=== PATIENT | male | born 1990 | race Hispanic/Latino ===

== ENCOUNTER 2016-07-10 02:06 | Inpatient (IN) | payer OTHER ==
[~2016-07-10] VITALS: Ht 175.3 cm; Wt 77.7 kg
[2016-07-10] MEDS ORDERED: CHARCOAL ACTIVATED LIQUID 25 GM/120 ML BTL As Ordered ONE (02:26)
[2016-07-10 02:33] LABS: MEAN CORPUSCULAR HEMOGLOBIN 29.5 pg (27.0-33.0); MEAN CORPUSCULAR HGB CONC 34.1 g/dl (32.0-36.5); MEAN CORPUSCULAR VOLUME 86.4 fl (80.0-96.0); RED CELL DISTRIBUTION WIDTH 12.9 % (11.5-14.5); WHITE BLOOD COUNT 10.6 K/mm3 (4.0-10.0)
[2016-07-10 02:56] LABS: AMPHETAMINES LEVEL URINE NEGATIVE (NEGATIVE); BENZODIAZEPINES URINE NEGATIVE (NEGATIVE); COCAINE METABOLITE URINE NEGATIVE (NEGATIVE); CONTROL LINE INT CTR LINE PRESENT; METHADONE URINE NEGATIVE (NEGATIVE); OPIATES URINE NEGATIVE (NEGATIVE); TRICYCLIC ANTIDEPRESS URINE NEGATIVE (NEGATIVE)
[2016-07-10 03:07] LABS: ALBUMIN 4.2 GM/DL (3.2-5.2); ALKALINE PHOSPHATASE 77 U/L (45-117); ALT/SGPT 37 U/L (12-78); ANION GAP 11 MEQ/L (8-16); AST/SGOT 28 U/L (15-37); BILIRUBIN,DIRECT < 0.1 MG/DL (0.0-0.2); BILIRUBIN,TOTAL 0.6 MG/DL (0.2-1.0); BLOOD UREA NITROGEN 20 MG/DL (7-18); CALCIUM LEVEL 8.6 MG/DL (8.5-10.1); CARBON DIOXIDE LEVEL 26 MEQ/L (21-32); CHLORIDE LEVEL 104 MEQ/L (98-107); CREATININE FOR GFR 1.18 MG/DL (0.70-1.30); GLOMERULAR FILTRATION RATE > 60.0 (>60); GLUCOSE, FASTING 95 MG/DL (70-105); POTASSIUM SERUM 3.6 MEQ/L (3.5-5.1); SODIUM LEVEL 141 MEQ/L (136-145); TOTAL PROTEIN 7.7 GM/DL (6.4-8.2)
[2016-07-10] MEDS ORDERED: traZODone 50 MG TAB PO PRN (07:00)
[2016-07-10] MEDS ORDERED: MOM 30ML SUSPENSION UDC PO PRN (07:00)
[2016-07-10] MEDS ORDERED: ACETAMINOPHEN TAB 650MG DOSE (2X325MG) PO PRN (07:00)
[2016-07-10] MEDS ORDERED: LORazepam 1 MG TAB PO PRN (07:00)
--- NOTE | 2016-07-10 08:15 | ECGEPIP ---
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
--- NOTE | 2016-07-10 08:38 | EDDOCDS ---
Nurse's Notes [facility] Name: Shashank Zelaya Age: 25 yrs Sex: Male : 1990 Arrival Date: 07/10/2016 Time: 02:06 Bed [facility] Private MD: Barry Clarke [facility] Diagnosis: Major depressive disorder, single episode, moderate;Suicide attempt Presentation: 07/10 02:11 Presenting complaint: EMS states: pt took a full box of mucinex (16 tabs) and tylenol ko2 500mg (12 tabs) around 1 am and told his . Pt states he was intentionally trying to hurt himself and he has been contemplating suicide the last month. Suicide/Homicide risk assessment- The patient admits to and/or has been reported to be having suicidal ideations. 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 Transition of care: patient was not received from another setting of care. Care prior to arrival: See EMS report. Saline lock initiated. Glucose check. 95. 02:11 Acuity: DANA Level 2 ko2 02:11 Method Of Arrival: Ambulance ko2 03:19 Adult Sepsis Screening: The patient does not have new or worsening altered mentation. ko2 Patient's respiratory rate is less than 22. Systolic blood pressure is greater than 100. Patient has a qSOFA score of 0- Negative Sepsis Screen. Triage Assessment: 02:15 General: Appears in no apparent distress, Behavior is cooperative. Pain: Denies pain. ko2 HIV screening NA for this visit Offered previously. The patient is triaged at the bedside. See Assessment in Nurses Notes section of ED record. Neurological: Level of Consciousness is awake, alert. Cardiovascular: Heart tones present Rhythm is regular. Respiratory: Airway is patent Respiratory effort is even, unlabored. GI: Abdomen is non- distended Bowel sounds present X 4 quads. Abd is soft and non tender X 4 quads. Derm: Skin is normal. Musculoskeletal: Range of motion intact in all extremities. Historical: - Allergies: No known drug Allergies; - Home Meds: 1. none - PMHx: none; - PSHx: none; - The history from nurses notes was reviewed: and I agree with what is documented. - Social history: Smoking status: Patient states was never smoker of tobacco. No barriers to communication noted, The patient speaks fluent Croatian, Speaks appropriately for age. - : The pt / caregiver states he / she is not on anticoagulants. Home medication list is obtained from the patient. - Hospitalizations: : No recent hospitalization is reported. - Exposure Risk Screening:: None identified. - Immunization history:: All immunizations up-to-date. - Family history: Not pertinent. - Social history:: the patient smokes cigarettes the patient drinks alcohol. Screenin:28 Screening information is obtained from the patient. Fall risk: No risks identified. dianne Assistance ADL's: requires no assistance with activities of daily living. Abuse/DV Screen: The patient / caregiver reports he/she is: not in a situation that causes fear, pain or injury. Nutritional screening: No deficits noted. Advance Directives: Currently, there is no health care proxy. There is no active DNR order. There is no living will. There is no Power of Research Chemist. Advance directive information has not previously been placed in an [facility] medical record. Further advance directive information is declined. home support is adequate. Assessment: 02:17 General: See triage assessment. ko2 03:18 General: Appears in no apparent distress, comfortable, Behavior is appropriate for age, ko2 cooperative. Pain: Denies pain. Neurological: Level of Consciousness is awake, alert. Cardiovascular: Rhythm is regular. Respiratory: Airway is patent Respiratory effort is even, unlabored, Respiratory pattern is regular, symmetrical. Derm: Skin is normal. 04:18 General: Appears in no apparent distress, comfortable, Behavior is appropriate for age, ko2 cooperative. Pain: Denies pain. Neurological: Level of Consciousness is awake, alert. Cardiovascular: Rhythm is sinus bradycardia No ectopy. Respiratory: Airway is patent Respiratory effort is even, unlabored. Derm: Skin is normal. 05:23 General: Appears in no apparent distress, comfortable, Behavior is appropriate for age, ko2 cooperative. Pain: Denies pain. Neurological: Level of Consciousness is awake, alert. Cardiovascular: Rhythm is sinus bradycardia No ectopy. Respiratory: Airway is patent Respiratory effort is even, unlabored. Derm: Skin is normal. 06:25 General: Appears in no apparent distress, comfortable, Behavior is appropriate for age, ka4 cooperative, quiet. Respiratory: Airway is patent Respiratory effort is even, unlabored, Respiratory pattern is regular, symmetrical. Derm: Skin is pink, warm & dry. 07:15 Reassessment: Patient appears in no apparent distress at this time. Breakfast tray has jc4 been delivered. 08:34 General: Appears in no apparent distress, comfortable, Behavior is cooperative. Pain: jc4 Denies pain. Neurological: Level of Consciousness is awake, alert, Oriented to person, place, time. Respiratory: Airway is patent Respiratory effort is even, unlabored, Respiratory pattern is regular, symmetrical. Derm: Skin is pink, warm & dry. 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 [facility] Behavioral Health: jovanna The patient is not an established patient of [facility] Behavioral Health. Referral Information: Evaluation referral is generated by [facility], accompanied by MPs. The patient was referred for evaluation because he took an intentional overdose, with suicidal intent. Subjective: The patients chief complaint is "I've lost everything; it's because of the ". Delusions are denied. Patient's mood is depressed & hopeless. Hallucinations are denied. 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 He reports being from [place], [place], as is his . He states that she followed him here from [place] & has since decided that she can no longer stand the change in climate & geography in general. He says that they went home for block leave & talked about making some changes in their lives in order to make her more comfortable, however she phoned him on his way back & said that she was "done". They have a 1.5 y/o child & he says that his decision to enlist has now cost him his family & he sees nothing left for him. He states that tonight he was texting with a friend in [place] that was trying to make him feel better, but then his turned away from him & ignored him when he began to cry, prompting the overdose. He denies having any relevant hx prior to now. When asked if he still feels suicidal, he replied, "I've lost everything", without committing either way. Patient appears hopeless & noted to be tearful at times during the interview. Mental Health history: no relevant mental health problems or treatments. Mental Health Admissions: None. Current Outpatient Mental Health Services: None. Current living environment is The patient currently lives with his & 1.5 y/o child. Patient presents to Emergency Department with the following symptoms within the past 2 weeks: anxiety, depressed mood, excessive guilt, feelings of helplessness/hopelessness, marital problem, sleep disturbance - insomnia, suicidal ideation with attempt/gesture by pills. Substance abuse: Pt denies. Mental status exam: Patients appearance is appropriate, Patient's behavior is cooperative, Speech is normal. Affect is appropriate. Mood is depressed. Hallucinations are denied. Appetite is normal. Memory is good. Energy level is normal. Content of thought is depressive & hopeless Thought process is intact. Cognitive level is oriented to person, place, time and situation Patient's insight is fair. Judgement is poor. Rapport with interviewer is good. Suicidal Ideation present with a plan to kill self by pills. Homicidal ideation is denied. 06:50 Disposition: Medically cleared for disposition by Elvin Jeff MD Psychiatric Consult jl is performed by phone with Dr Santana Jalloh. [facility] Admission Criteria: The patient has had a suicide attempt in the recent past. The patient requires continuous observation and/or control to protect self, others or property. The patient's care requires a multi-modal treatment plan under close supervision and coordination due to the complexity and severity of the patient's symptoms. Legal Status: Patient's legal status will be Emergency admission: 39. [place] Safe Act: [place] Safe Act is applicable to this patient. The patient poses a risk to self or other and the Nursing Student Records Specialist has been notified. He/She will enter the patient's data. DSM-V Differential Diagnosis: Unspecified Depressive Disorder (F32.9). Insurance Pre-Certification: Not Required. 07:46 Awaiting: transfer to [facility]. Vital Signs: 02:12 BP 154 / 89 (auto/); ko2 02:13 Weight 76.61 kg (M); jul 02:13 Pulse 79 MON; Pulse Ox 99% ; ko2 02:15 BP 154 / 89; Pulse 72; Resp 18; Temp 97.8(O); Pulse Ox 100% on R/A; Height 5 ft. 9 in. latosha (175.26 cm) (R); 02:15 BP 138 / 85 (auto/); ko2 02:16 Pulse 67 MON; Pulse Ox 100% ; ko2 02:30 BP 132 / 74 (auto/); ko2 02:31 Pulse 67 MON; Pulse Ox 98% ; ko2 02:45 BP 125 / 66 (auto/); ko2 02:46 Pulse 73 MON; ko2 03:00 BP 119 / 75 (auto/); ko2 03:00 Pulse 80 MON; ko2 03:15 BP 105 / 65 (auto/); ko2 03:16 Pulse 73 MON; Pulse Ox 99% ; ko2 03:30 BP 118 / 62 (auto/); ko2 03:31 Pulse 68 MON; Pulse Ox 98% ; ko2 03:45 BP 94 / 50 (auto/); ko2 03:46 Pulse 65 MON; Pulse Ox 97% ; ko2 04:00 BP 88 / 52 (auto/); ko2 04:00 Pulse 61 MON; Pulse Ox 96% ; ko2 04:01 BP 93 / 50 (auto/); ko2 04:01 Pulse 59 MON; Pulse Ox 96% ; ko2 04:15 BP 93 / 54 (auto/); ko2 04:16 Pulse 57 MON; Pulse Ox 97% ; ko2 04:30 BP 81 / 42 (auto/); ko2 04:30 Pulse 57 MON; Pulse Ox 97% ; ko2 04:47 BP 89 / 53 (auto/); ko2 04:48 Pulse 66 MON; Pulse Ox 98% ; ko2 05:00 BP 102 / 57 (auto/); ko2 05:01 Pulse 72 MON; Pulse Ox 99% ; ko2 05:15 BP 107 / 56 (auto/); ko2 05:16 Pulse 71 MON; Pulse Ox 100% ; ko2 05:30 BP 104 / 56 (auto/); ko2 05:30 Pulse 63 MON; Pulse Ox 99% ; ko2 05:45 BP 105 / 58 (auto/); ko2 05:46 Pulse 59 MON; Pulse Ox 97% ; ko2 06:42 BP 118 / 82; Pulse 76; Resp 18; Temp 97.4(T); Pulse Ox 97% on R/A; Pain 0/10; kb5 07:49 BP 135 / 68; Pulse 80; Resp 16; Temp 97.2(T); Pulse Ox 97% on R/A; dpm Vitals: 03:20 Log In Time N/A - ambulance arrival. ko2 ED Course: 02:07 Ellen Caldwell,RN is Primary Nurse. sew 02:07 Patient visited by Misty Basilio. sew 02:07 Patient moved to 2 sew 02:08 Other - Complete Info On Cds is Private Physician. sew 02:08 Barry Clarke [facility] is Private Physician. sew 02:14 Elvin Jeff MD is Attending Physician. pc 02:14 Triage Initiated ko2 02:15 Pt greeted and oriented to ED. Patient advised of names of staff involved in care, latosha location of call gale, wait times and NPO status. Accompanied by Law Enforcement, Patient has correct armband on for positive identification. Placed in psych safe attire. Bed in low position. Call light in reach. Side rails up X2. commercial lender on. Pulse ox on. NIBP on. 02:18 Patient visited by Magui Conde PCA. latosha 02:18 EKG done. (by ED staff). Reviewed by Elvin Jeff MD. latosha 02:24 Patient visited by Elvin Jeff MD. pc 02:28 The patient / caregiver is instructed regarding the plan of care and ED course. jul 02:30 Poison Control notified at 02:25 recommendations reviewed with recommendations relayed jul to Dr Jeff per recommendations of Silvia at Poison Control. 02:39 Drug Eval Toxicology ED Only Sent. jul 03:18 Patient visited by Ellen Caldwell,CHEKO. ko2 03:19 Maintain field IV. Dressing intact. Good blood return noted. Site clean & dry. Gauge & ko2 site: 18 gauge right AC. 04:18 Patient visited by Ellen Caldwell,RN. ko2 05:01 Patient visited by Ellen Caldwell,RN. ko2 05:02 ACETAMINOPHEN LEVEL Sent. ko2 05:58 Patient visited by Ellen Caldwell,CHEKO. ko2 06:05 Patient moved to [facility] sew 06:06 Discontinued lock intact, bleeding controlled, pressure dressing applied, No ko2 redness/swelling at site. 06:15 Pt greeted and oriented to ED. Patient advised of names of staff involved in care, kb5 location of call gale, wait times and NPO status. Patient has correct armband on for positive identification. Placed in psych safe attire. Bed in low position. Call light in reach. Side rails up X 1. Security observing. Property removed, inventory done, secured in belongings bag- Placed in Locker 2. Patient in psych safe attire prior to entering [facility]. Door closed. Noise minimized. Visitors limited. Warm blanket given. Psych Safety Check: Location: Psych Room. Visual Assessment: Cooperative. 06:20 Patient visited by Madi Mcpherson PCA. kb5 06:26 Patient visited by Soo Rodriguez LPN. ka4 06:30 Patient visited by Madi Mcpherson PCA. kb5 06:30 Psych Safety Check: Location: Psych Room. Visual Assessment: Cooperative. kb5 06:30 [facility] Payment Agreement was scanned into [employer] and attached to record. hs2 06:45 Patient visited by Madi Mcpherson PCA. kb5 06:45 Psych Safety Check: Location: Psych Room. Visual Assessment: Cooperative. kb5 06:51 Santana Jalloh is Hospitalizing Provider. pc 06:58 [facility] Legal paperwork was scanned into [employer] and attached to record. jl 07:00 Tara De Leon, CHEKO is Primary Nurse. jc4 07:00 Psych Safety Check: Location: Psych Room. Visual Assessment: Cooperative. kb5 07:03 Patient visited by Madi Mcpherson PCA. kb5 07:20 Patient visited by Miles Escobar. dpm 07:31 Primary Nurse role handed off by Ellen Caldwell,CHEKO kpj 07:36 Patient visited by Miles Escobar. dpm 07:52 Patient visited by Miles Escobar. dpm 08:00 Patient visited by Miles Escobar. dpm 08:14 Patient visited by Miles Escobar. dpm 08:30 Patient visited by Miles Escobar. dpm 08:36 EKG-ADULT Returned. EDMS 08:37 No procedures done that require assistance. jc4 Administered Medications: 02:39 Drug: Activated Charcoal (1g/kg) 75 grams [activated charcoal 25 gram/120 mL oral ko2 suspension (7200 drps)] Route: PO; Attachments: 06:58 [facility] Legal paperwork jl Order Results: Lab Order: Acetaminophen Level; SPEC'M 07/10/16 02:23 Test: ACETAMINOPHEN LEVEL; Value: 53.4; Range: 10.0-30.0; Abnormal: Above high normal; Units: UG/ML; Status: F Lab Order: Basic Metabolic Profile; SPEC'M 07/10/16 02:23 Test: GLUCOSE, FASTING; Value: 95; Range: 70-105; Units: MG/DL; Status: F Test: BLOOD UREA NITROGEN; Value: 20; Range: 7-18; Abnormal: Above high normal; Units: MG/DL; Status: F Test: CREATININE FOR GFR; Value: 1.18; Range: 0.70-1.30; Units: MG/DL; Status: F Test: GLOMERULAR FILTRATION RATE; Value: > 60.0; Range: >60; Status: F Test: SODIUM LEVEL; Value: 141; Range: 136-145; Units: MEQ/L; Status: F Test: POTASSIUM SERUM; Value: 3.6; Range: 3.5-5.1; Units: MEQ/L; Status: F Test: CHLORIDE LEVEL; Value: 104; Range: 98-107; Units: MEQ/L; Status: F Test: CARBON DIOXIDE LEVEL; Value: 26; Range: 21-32; Units: MEQ/L; Status: F Test: ANION GAP; Value: 11; Range: 8-16; Units: MEQ/L; Status: F Test: CALCIUM LEVEL; Value: 8.6; Range: 8.5-10.1; Units: MG/DL; Status: F Test Note: ; Units are mL/min/1.73 m2 Chronic Kidney Disease Staging per NKF: Stage I & II GFR >=60 Normal to Mildly Decreased Stage III GFR 30-59 Moderately Decreased Stage IV GFR 15-29 Severely Decreased Stage V GFR <15 Very Little GFR Left ESRD GFR <15 on MACHINERY ENGINEER Lab Order: Complete Blood Count; SPEC'M 07/10/16 02:23 Test: WHITE BLOOD COUNT; Value: 10.6; Range: 4.0-10.0; Abnormal: Above high normal; Units: K/mm3; Status: F Test: RED BLOOD COUNT; Value: 5.16; Range: 4.30-6.10; Units: M/mm3; Status: F Test: HEMOGLOBIN; Value: 15.2; Range: 14.0-18.0; Units: g/dl; Status: F Test: HEMATOCRIT; Value: 44.6; Range: 42.0-52.0; Units: %; Status: F Test: MEAN CORPUSCULAR VOLUME; Value: 86.4; Range: 80.0-96.0; Units: fl; Status: F Test: MEAN CORPUSCULAR HEMOGLOBIN; Value: 29.5; Range: 27.0-33.0; Units: pg; Status: F Test: MEAN CORPUSCULAR HGB CONC; Value: 34.1; Range: 32.0-36.5; Units: g/dl; Status: F Test: RED CELL DISTRIBUTION WIDTH; Value: 12.9; Range: 11.5-14.5; Units: %; Status: F Test: PLATELET COUNT, AUTOMATED; Value: 255; Range: 150-450; Units: k/mm3; Status: F Lab Order: Drug Eval Toxicology ED Only; SPEC'M 07/10/16 02:38 Test: AMPHETAMINES LEVEL URINE; Value: NEGATIVE; Range: NEGATIVE; Status: F Test: BARBITURATES URINE; Value: NEGATIVE; Range: NEGATIVE; Status: F Test: BENZODIAZEPINES URINE; Value: NEGATIVE; Range: NEGATIVE; Status: F Test: CANNABINOIDS URINE; Value: NEGATIVE; Range: NEGATIVE; Status: F Test: COCAINE METABOLITE URINE; Value: NEGATIVE; Range: NEGATIVE; Status: F Test: METHADONE URINE; Value: NEGATIVE; Range: NEGATIVE; Status: F Test: OPIATES URINE; Value: NEGATIVE; Range: NEGATIVE; Status: F Test: TRICYCLIC ANTIDEPRESS URINE; Value: NEGATIVE; Range: NEGATIVE; Status: F Test Note: ; ALL PRESUMPTIVE POSITIVE FINDINGS ARE UNCONFIRMED NORMAL VALUES THRESHOLD IN NG/ML AMPHETAMINES 1000 METHAMPHETAMINES 1000 BARBITURATES 300 BENZODIAZEPINES 300 CANNABINOIDS (THC) 50 COCAINE METABOLITE 300 METHADONE 300 OPIATES 300 PHENCYCLIDINE 25 TRICYCLIC ANTIDEPRESSANTS 1000 RESULTS ARE FOR MEDICAL PURPOSES ONLY. ALL URINE SPECIMENS WILL BE SAVED FOR 3 DAYS. IF CONFIRMATION OF A PRESUMPTIVE POSTIVE SCREEN RESULT IS DESIRED, CALL CHEMISTRY ([phone]) AND REQUEST URINE TO BE SENT TO REFERENCE LAB. FOR A LIST OF CLOSELY RELATED COMPOUNDS PLEASE CALL THE LAB. Lab Order: Ethyl Alcohol (ethanol); SPEC'M 07/10/16 02:23 Test: ETHYL ALCOHOL (ETHANOL); Value: < 0.003; Range: 0.000-0.010; Units: %; Status: F Lab Order: Liver Profile; SPEC'M 07/10/16 02:23 Test: AST/SGOT; Value: 28; Range: 15-37; Units: U/L; Status: F Test: ALT/SGPT; Value: 37; Range: 12-78; Units: U/L; Status: F Test: ALKALINE PHOSPHATASE; Value: 77; Range: 45-117; Units: U/L; Status: F Test: BILIRUBIN,TOTAL; Value: 0.6; Range: 0.2-1.0; Units: MG/DL; Status: F Test: BILIRUBIN,DIRECT; Value: < 0.1; Range: 0.0-0.2; Units: MG/DL; Status: F Test: TOTAL PROTEIN; Value: 7.7; Range: 6.4-8.2; Units: GM/DL; Status: F Test: ALBUMIN; Value: 4.2; Range: 3.2-5.2; Units: GM/DL; Status: F Test: ALBUMIN/GLOBULIN RATIO; Value: 1.20; Range: 1.00-1.93; Status: F Lab Order: Salicylate Level; SPEC'M 07/10/16 02:23 Test: SALICYLATE LEVEL; Value: < 1.7; Range: 5.0-30.0; Abnormal: Below low normal; Units: MG/DL; Status: F Lab Order: Thyroid Stimulating Hormone; SPEC'M 07/10/16 02:23 Test: THYROID STIMULATING HORMONE; Value: 5.090; Range: 0.358-3.740; Abnormal: Above high normal; Units: uIU/ML; Status: F Lab Order: ACETAMINOPHEN LEVEL; SPEC'M 07/10/16 05:00 Test: ACETAMINOPHEN LEVEL; Value: 28.0; Range: 10.0-30.0; Units: UG/ML; Status: F Radiology Order: EKG-ADULT Test: EKG-ADULT REASON FOR EXAMINATION: overdose; Stationary ECG Study; [facility] - ED; ; Test Date: 2016-07-10; Pat Name: SHASHANK ZELAYA Department:; Room: -; 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 08:35 Discharge Assessment: Patient awake, alert and oriented x 3. No cognitive and/or jc4 functional deficits noted. Patient verbalized understanding of disposition instructions. 08:36 Discharge Assessment: patient administered narcotics - no. The following High Risk jc4 Discharge criteria are identified: Yes, patient has been evaluated by PSA during this ED visit. Admitted to Psych accompanied by tech, via wheelchair, with chart. Condition: stable. No special radiology studies were completed. 08:37 Patient left the ED. 4 Signatures: Dispatcher [employer] EDMS Elvin Jeff MD MD pc Jobson, Karen, RN CHEKO Church, Emilia Davies, RN Antonio Sanchez, PSA PSA ac Darren Pak, PSA PSA Madi Mejia, OPS MANAGER OPS MANAGER kb5 Tara De Leon RN RN jc4 Magui Conde, OPS MANAGER OPS MANAGER Miles Torres dpMisty Melchor Kodie, LPN LPN ka4 Ellen Caldwell,RN RN ko2 Shi Gonzalez, Reg Reg hs2 Corrections: (The following items were deleted from the chart) 06:47 06:42 Pulse 76bpm; Resp 18bpm; Pulse Ox 97% RA; Temp 97.4F Tympanic; Pain 0/10; kb5 kb5 MTDD
--- NOTE | 2016-07-10 08:38 | EDDOCDS ---
Physician Documentation [facility] Name: Shashank Zelaya Age: 25 yrs Sex: Male : 1990 Arrival Date: 07/10/2016 Time: 02:06 Bed [facility] Private MD: Barry Clarke [facility] Disposition: 07/10 06:48 Critical Care: Critical care not applicable. pc Disposition: 07/10/16 06:51 Hospitalization ordered by Santana Jalloh for Inpatient Admission. Preliminary diagnosis are Major depressive disorder, single episode, moderate, Suicide attempt. - Bed requested for Admit. - Status is Inpatient Admission. jc4 - Condition is Stable. - Problem is new. - Symptoms have improved. HPI: 02:16 This 25 yrs old Male presents to ER via Ambulance with complaints of Overdose. pc 02:16 The history is obtained from the patient, EMS providers, a police clerk. The patient pc presents to the emergency department with depression, intentional drug overdose. The patient's intention was to commit suicide. At their worst, the symptoms were severe. In the emergency department, the symptoms are unchanged. He took an overdose of 16 tablets of Mucinex Fast-Max, which contains acetaminophen/dextromethorphan/guaifenesin/phenylephrine in a ratio of 325mg/10mg/200mg/5mg, as well as 12-24 acetaminophen/diphenhydraime tablets 500mg/25mg, for a total acetaminophen ingestion of 11.2g to 17.2g, one hour CLOTHES MODEL. The patient ingested the following substances:. The patient has not experienced similar symptoms in the past. The patient has not recently seen a physician. Historical: - Allergies: No known drug Allergies; - Home Meds: 1. none - PMHx: none; - PSHx: none; - The history from nurses notes was reviewed: and I agree with what is documented. - Social history: Smoking status: Patient states was never smoker of tobacco. No barriers to communication noted, The patient speaks fluent Uzbek, Speaks appropriately for age. - : The pt / caregiver states he / she is not on anticoagulants. Home medication list is obtained from the patient. - Hospitalizations: : No recent hospitalization is reported. - Exposure Risk Screening:: None identified. - Immunization history:: All immunizations up-to-date. - Family history: Not pertinent. - Social history:: the patient smokes cigarettes the patient drinks alcohol. ROS: 02:16 All systems are negative except as listed. The psychiatric and neurological components pc are also addressed in the HPI. Exam: 02:16 General Appearance: alert, no acute distress. pc 02:16 ENT: ear, nose and throat normal, pharynx normal. 02:16 Eyes: pupils equal, round and reactive to light, extraocular motions intact. 02:16 Neck: The exam reveals no acute abnormalities. ROM is normal and painless. No nuchal rigidity is noted.. 02:16 Respiratory: breathing is even and unlabored, breath sounds are normal. 02:16 Cardiovascular: regular pulse rate, regular heart rhythm, normal heart sounds, equal and full pulses bilaterally. 02:16 Abdomen: soft, non-tender, no organomegaly, normal bowel sounds. 02:16 Skin: skin color is normal, warm, dry. 02:16 Extremities: The extremities have a grossly normal appearance, are non-tender, without acute ROM abnormalities. 02:16 Neuro: alert, oriented to person, place and time, cranial nerves normal as tested, no motor deficits, no sensory deficits. 02:16 Psych: mood is depressed, suicidal, affect is flat. Vital Signs: 02:12 BP 154 / 89 (auto/); ko2 02:13 Weight 76.61 kg / 168.9 lbs (M); jul 02:13 Pulse 79 MON; Pulse Ox 99% ; ko2 02:15 BP 154 / 89; Pulse 72; Resp 18; Temp 97.8(O); Pulse Ox 100% on R/A; Height 5 ft. 9 in. latosha (175.26 cm) (R); 02:15 BP 138 / 85 (auto/); ko2 02:16 Pulse 67 MON; Pulse Ox 100% ; ko2 02:30 BP 132 / 74 (auto/); ko2 02:31 Pulse 67 MON; Pulse Ox 98% ; ko2 02:45 BP 125 / 66 (auto/); ko2 02:46 Pulse 73 MON; ko2 03:00 BP 119 / 75 (auto/); ko2 03:00 Pulse 80 MON; ko2 03:15 BP 105 / 65 (auto/); ko2 03:16 Pulse 73 MON; Pulse Ox 99% ; ko2 03:30 BP 118 / 62 (auto/); ko2 03:31 Pulse 68 MON; Pulse Ox 98% ; ko2 03:45 BP 94 / 50 (auto/); ko2 03:46 Pulse 65 MON; Pulse Ox 97% ; ko2 04:00 BP 88 / 52 (auto/); ko2 04:00 Pulse 61 MON; Pulse Ox 96% ; ko2 04:01 BP 93 / 50 (auto/); ko2 04:01 Pulse 59 MON; Pulse Ox 96% ; ko2 04:15 BP 93 / 54 (auto/); ko2 04:16 Pulse 57 MON; Pulse Ox 97% ; ko2 04:30 BP 81 / 42 (auto/); ko2 04:30 Pulse 57 MON; Pulse Ox 97% ; ko2 04:47 BP 89 / 53 (auto/); ko2 04:48 Pulse 66 MON; Pulse Ox 98% ; ko2 05:00 BP 102 / 57 (auto/); ko2 05:01 Pulse 72 MON; Pulse Ox 99% ; ko2 05:15 BP 107 / 56 (auto/); ko2 05:16 Pulse 71 MON; Pulse Ox 100% ; ko2 05:30 BP 104 / 56 (auto/); ko2 05:30 Pulse 63 MON; Pulse Ox 99% ; ko2 05:45 BP 105 / 58 (auto/); ko2 05:46 Pulse 59 MON; Pulse Ox 97% ; ko2 06:42 BP 118 / 82; Pulse 76; Resp 18; Temp 97.4(T); Pulse Ox 97% on R/A; Pain 0/10; kb5 07:49 BP 135 / 68; Pulse 80; Resp 16; Temp 97.2(T); Pulse Ox 97% on R/A; dpm MDM: 02:11 Consult PFS/PSA/Bellmaker: Patient's case requires discussion with on-call dianne Psychiatrist ordered. 02:11 PSA/PFS to call Nursing Senior Packaging Engineer, to enter patient data on [place] Safe [place] if patient dianne involuntarily admitted or transferred for SI or HI ordered. 02:11 Parking Technician/Pulse Ox/q 15 min VS ordered. jul 02:11 Confirm accurate psychiatric medication list and times of last dosage ordered. jul 02:11 Detain Pt Until Medically/PFS Cleared ordered. jul 02:11 IV Saline Lock ordered. jul 02:12 Acetaminophen Level Ordered. EDMS 02:12 Basic Metabolic Profile Ordered. EDMS 02:12 Complete Blood Count Ordered. EDMS 02:12 Drug Eval Toxicology ED Only Ordered. EDMS 02:12 Ethyl Alcohol (ethanol) Ordered. EDMS 02:12 Liver Profile Ordered. EDMS 02:12 Salicylate Level Ordered. EDMS 02:12 Thyroid Stimulating Hormone Ordered. EDMS 02:13 ECG WITH READING ER PHYS+CARDIAG ordered. EDMS 02:15 Call Poison Control ordered. pc 02:16 Activated Charcoal (1g/kg) Suspension 75 grams PO once ordered. pc 02:16 Differential diagnosis: depression, suicide attempt, intentional drug overdose. Plan: pc labs, EKG, Poison Control. Test interpretation: EKG. 03:10 Complete Blood Count Reviewed. pc 03:10 Drug Eval Toxicology ED Only Reviewed. pc 03:26 Acetaminophen Level Reviewed. pc 03:26 Basic Metabolic Profile Reviewed. pc 03:26 Salicylate Level Reviewed. pc 03:26 Thyroid Stimulating Hormone Reviewed. pc 03:26 Ethyl Alcohol (ethanol) Reviewed. pc 03:26 Liver Profile Reviewed. pc 03:26 Redraw Acetaminophen (put time in details section) ordered. pc 04:21 Redraw Acetaminophen (put time in details section) complete. sew 04:21 ACETAMINOPHEN LEVEL Ordered. EDMS 05:41 ACETAMINOPHEN LEVEL Reviewed. pc 06:15 Financial registration complete. hs2 06:22 REGULAR DIET PLASTIC OLIVO+DIET ordered. EDMS 06:30 [facility] Payment Agreement was scanned into [employer] and attached to record. hs2 06:48 The patient has been medically cleared for psychiatric evaluation, admission and/or pc transfer. [place] Safe Act reporting: The patient poses a significant risk to self or others, and PSA/PFS has notified the Nursing Senior Packaging Engineer and he/she will complete the required data systems analyst. Data reviewed: old medical records, vital signs, nurses notes, EKG(s), lab test results. Test interpretation: LAB - all labs as ordered have been reviewed, interpreted and considered in the overall management of the clinical presentation;. The patient has been re-examined and re-evaluated. The patient's symptoms have markedly improved after treatment. Other consultation: Poison control, The ED petroleum refinery worker was notified and will evaluate the patient. 06:48 Disposition: The historical points, examination findings, and any diagnostic results pc supporting the provided diagnosis, were discussed with the patient or legal guardian. The need for further work-up and/or treatment in the hospital was explained. 06:52 Consult PFS/PSA/Bellmaker: Patient's case requires discussion with on-call jl Psychiatrist complete. 06:52 PSA/PFS to call Nursing Senior Packaging Engineer, to enter patient data on [place] Safe [place] if patient jl involuntarily admitted or transferred for SI or HI complete. 06:57 REGULAR DIET ordered. EDMS 06:58 [facility] Legal paperwork was scanned into [employer] and attached to record. jl 06:58 Admit to [facility]: ordered. EDMS EC:16 Rate is 62 beats/min. Rhythm is regular, Normal Sinus Rhythm. QRS Ashley is Normal. MA pc interval is normal. QRS interval is normal. QT interval is normal. No Q waves. T waves are Normal. No ST changes noted. Clinical impression: Normal Sinus Rhythm. Administered Medications: 02:39 Drug: Activated Charcoal (1g/kg) 75 grams [activated charcoal 25 gram/120 mL oral ko2 suspension (7200 drps)] Route: PO; Signatures: [facility] Elvin Jeff MD MD pc Newman, Jill New RN Darren Butler PSA PSA jl Castle, Jennifer RN RN jc4 Misty Basilio Kari, RN RN ko2 Shi Gonzalez, Reg Reg hs2 The chart was reviewed and I authenticate all verbal orders and agree with the evaluation and treatment provided.Corrections: (The following items were deleted from the chart) 02:15 02:11 Consult PFS/PSA/Bellmaker ordered. jul pc 02:24 02:16 He took an overdose of 16 tablets of Mucinex Fast-Max, which contains pc acetaminophen/dextromethorphan/guaifenesin/phenylephrine in a ratio of 325mg/10mg/200mg/5mg, as well as 12-24 acetaminophen tablets 325mg, for a total acetaminophen ingestion of 11.2g to 17.2g, an hour CLOTHES MODEL pc Attachments: 06:30 [facility] Payment Agreement hs2 MTDD
[2016-07-10 08:50] VITALS: BP 127/82
[2016-07-10 18:00] VITALS: BP 135/80
[2016-07-11 06:37] VITALS: BP 123/62
--- NOTE | 2016-07-11 10:22 | HPEPDOC ---
Medical History and Physical Date of Admission Jul 10, 2016 at 08:43 History and Physical PCP: [facility] ATTENDING: Dr. Lee Jeong HPI: 25[facility]M [facility], being medically examined today. Patient was medically cleared in the emergency department after taking 16 tablets of Mucinex and 12 tablets of 500 mg Tylenol. No acute medical complaints today. Denies any fevers, chills, weakness, fatigue, [place], CP, SOB, cough, palpitations, abdominal pain, N/V/D or changes in bowel or bladder habits. 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 ROS: As noted in HPI, otherwise 11pt ROS of systems reviewed and unremarkable PE: GEN: 25 yo M, appears stated age. Well-nourished, well developed. No acute distress. Alert and oriented x 3. Pleasant, interactive. HEENT: Normocephalic, atraumatic. Pupils are equal, round, and reactive to light. Extraocular movements are intact. No nystagmus appreciated. Sclera are nonicteric. Conjunctiva without injection. Nose midline. Nasal turbinates without bogginess. EACs both patent BL. TMs both visualized and garsia with good cone of light, no bulging or erythema. No facial asymmetry. Moist mucous membranes. Dentition fair. Pharynx pink and moist, no cobblestoning. Neck supple , trachea midline. No lymphadenopathy or thyromegaly appreciated. CHEST: Regular rate and rhythm, +S1, +S2 LUNGS: Clear to auscultation bilaterally. No wheezes, rales, or rhonchi. Breathing appears symmetric and easy. Patient is speaking in full sentences. No accessory muscle use. ABD: Round, soft, non-tender, non-distended. +Bowel sounds throughout. No rebound or guarding. No costovertebral angle tenderness. EXT: Pulses 2+ bilaterally dorsalis pedis and radial. No lower extremity edema appreciated. SKIN: [place], dry, warm. Capillary refill <2sec. No rashes. NEURO: Alert and oriented x 3. Cranial nerves III-XII are intact. No focal deficits appreciated. EK07/10/16 SR 62 bpm. A&P: 25yoM [facility] 1. Psych. Plan per Psychiatry. EKG on file. 2. Leukocytosis. Patient is asymptomatic. Afebrile. Likely stress response. Recheck CBC. 3. Elevated TSH. Recheck TFTs. 4. Follow up with PCP on discharge. [facility] 5. Substance use. per psychiatry. 6. Accompanied by staff member throughout exam, clinical safety specialist Ed. Vital Signs Vital Signs Label Value Date Time Patient Temperature 96.0 degrees F 07/11/16 0637 Temperature Source Tympanic 07/11/16 0637 Pulse 64 07/11/16 0637 Respiratory Rate 16 bpm 07/11/16 0637 Blood Pressure Assessment 123/62 (82) 07/11/16 0637 Laboratory Data Labs 24H Vital Signs Label Value Date Time Patient Temperature 96.0 degrees F 07/11/16 0637 Temperature Source Tympanic 07/11/16 0637 Pulse 64 07/11/16 0637 Respiratory Rate 16 bpm 07/11/16 0637 Blood Pressure Assessment 123/62 (82) 07/11/16 0637 Item Value Date Time White Blood Count 10.6 K/mm3 H 07/10/16 022 Red Blood Count 5.16 M/mm3 07/10/16 022 Hemoglobin 15.2 g/dl 07/10/16222 Hematocrit 44.6 % 07/10/16 022 Mean Corpuscular Volume 86.4 fl 07/10/16 022 Mean Corpuscular Hemoglobin 29.5 pg 07/10/16 022 Mean Corpuscular Hemoglobin Concent 34.1 g/dl 07/10/16 022 Red Cell Distribution Width 12.9 % 07/10/16 022 Platelet Count 255 k/mm3 07/10/16222 Sodium Level 141 MEQ/L 07/10/16222 Potassium Level 3.6 MEQ/L 07/10/16222 Chloride Level 104 MEQ/L 07/10/16222 Carbon Dioxide Level 26 MEQ/L 07/10/16222 Anion Gap 11 MEQ/L 07/10/16 022 Blood Urea Nitrogen 20 MG/DL H 07/10/163 Creatinine 1.18 MG/DL 07/10/16222 Glomerular Filtration Rate > 60.0 07/10/163 Fasting Glucose 95 MG/DL 07/10/163 Calcium Level 8.6 MG/DL 07/10/16222 Total Bilirubin 0.6 MG/DL 07/10/16222 Direct Bilirubin < 0.1 MG/DL 07/10/16222 Aspartate Amino Transf (AST/SGOT) 28 U/L 07/10/16222 Alanine Aminotransferase (ALT/SGPT) 37 U/L 07/10/16222 Alkaline Phosphatase 77 U/L 07/10/16222 Total Protein 7.7 GM/DL 07/10/163 Albumin 4.2 GM/DL 07/10/16222 Albumin/Globulin Ratio 1.20 07/10/16222 Thyroid Stimulating Hormone (TSH) 5.090 uIU/ML H 07/10/16222 Salicylates Level < 1.7 MG/DL L 07/10/16222 Urine Opiates Screen NEGATIVE 07/10/16 0238 Urine Methadone Screen NEGATIVE 07/10/16 0238 Urine Barbiturates, Qualitative NEGATIVE 07/10/168 Urine Tricyclic Antidepressants NEGATIVE 07/10/16 0238 Urine Amphetamine Level NEGATIVE 07/10/16 0238 Urine Benzodiazepines Screen NEGATIVE 07/10/168 Urine Cocaine Metabolite NEGATIVE 07/10/168 Urine Cannabinoids NEGATIVE 07/10/16 0238 Ethyl Alcohol Level < 0.003 % 07/10/16222 Acetaminophen Level 53.4 UG/ML H 07/10/16222 Acetaminophen Level 28.0 UG/ML 07/10/16 0500 Home Medications No Active Prescriptions or Reported Meds Allergies Coded Allergies: No Known Allergies (Unverified , 07/10/16) Alessandra Carter Jul 11, 2016 10:22
[2016-07-11 18:00] VITALS: BP_SYST 124; BP_SYST 129; BP_DIAS 78; BP_DIAS 87
--- NOTE | 2016-07-11 21:05 | HPEPDOC ---
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 Patient indicates his recently informed him that the relationship is over, notes he became suicidal and impulsively and intentionally overdosed on 16 tabs of Mucinex and 12 500 mg Tylenol tablets, notes he informed his who called the MPs who escorted patient to the emergency room. Patient indicates he has been one year as a 1-1/2-year-old child, has been at [place] with his for 4 months where they moved together from [facility]. Patient indicates his wants to return to [place] due to weather and he and his have been experiencing significant relationship tension. Patient notes prior to overdose he had been experiencing symptoms of anxiety, depression, hopelessness, and guilt. Patient reports current anxiety level of 2/10, depression 3/10, denies suicidal and homicidal ideation, denies audiovisual hallucinations, and denies urge to engage in self-injurious behavior. Patient states at time of overdose he intended to omit suicide, denies history of other suicide attempts. Suicidal ideation when he realized he was going to have to return to [place] from being on leave in [place]. 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 Patient denies symptoms of anxiety in social settings denies panic symptoms, denies history of compulsive behavior, denies agitation, aggression or history of unsanctioned violence, and denies access to weapons. Patient denies symptoms of reexperiencing, avoidance, hyperarousal is dissociative symptoms and denies history of mood lability, hypomania or maxim symptoms. Patient indicates he sleeps approximately 8-9 hours a night and denies nightmares, denies challenges to concentration and energy level and indicates his appetite is normal. PAST PSYCHIATRIC HISTORY: Patient denies MEDICAL HISTORY: Patient reports intermittent back pain, denies pain at present. She denies history of seizure or head injury, denies cardiac related challenges. HOME MEDICATIONS: Please see below. ALLERGIES: Please see below. FAMILY PSYCHIATRIC HISTORY: Patient denies SOCIAL HISTORY: Patient indicates he was born and raised in [place] by his mother, is estranged by his father, has lived in [place] for the past 8 years, denies history of abuse, trauma, or witnessing domestic violence in the home while growing up. Patient indicates in the [place] area he has a limited support system but notes his biological family is supportive. She denies history of legal problems. 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 SUBSTANCE ABUSE HISTORY: Patient denies LEGAL HISTORY: Patient denies VITAL SIGNS: Blood pressure 123/64, pulse 64, respirations 16, temperature 96.0 LABORATORY DATA: Please see below. EKG on 07/10/16 SR Labs on admission indicate elevated WBCs, elevated BUN, elevated TSH. 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 Patient presents with good hygiene, dressed in hospital clothing, makes good eye contact and is pleasant and cooperative. Behavior: Patient displays no psychomotor agitation Attitude: Pleasant and cooperative with interview. Speech: Spontaneous, normal quantity, normal rate, normal volume, well articulated. Thought Content: Denies suicidal/homicidal ideation. Denies auditory/visual hallucination. Does not appear to be responding to internal stimuli. Does not appear internally preoccupied. Thought Process: Logical, linear, goal-oriented. Mood: "Usually really happy, now I can't wait to see my and kids." Affect: Euthymic, full range, congruent to stated mood. Cognition: Grossly intact. Orientation: Awake, alert, oriented times three. Insight and Judgement: Poor ASSESSMENT: Patient appears to be adjusting to unit, is visible, states he has been attending groups, and is engageable. Patient indicates he feels he made a "mistake" when he attempted to overdose, notes he now wants to discharge as he misses his and child. Patient is superficially bright, minimizes the events which led to his current hospitalization, and is now requesting discharge to return to [place] outpatient behavioral health. Patient states he wants to be released from the [employer] so he can return to [place] with his and child, notes has visited him in the hospital and the visit went well. Patient denies suicidal and homicidal ideation, and is able to effectively engage in the safety planning process verbalizing awareness of how to access supportive services on the unit if needed. Medication options were discussed with patient who is currently declining all medication siting lack of need. Will continue to observe patient on unit for safety and discharge readiness. PROBLEM LIST: Suicide attempts Depression Anxiety Limited coping skills Support system Work strain Patient's attention DIAGNOSES: Adjustment disorder with mixed anxiety and depressed mood, rule out MDD MANAGEMENT PLAN: Encourage patient to consider taking psychotropic medication to address symptoms of anxiety and depression Maintain safety precautions Patient to attend groups and participate in unit programming to develop coping strategies Engage patient in discharge planning process and arrange meeting with command to evaluate safe discharge planning when appropriate, patient agrees to participate in outpatient behavioral health and IOP Patient to follow up with [facility] PC[facility] upon discharge ESTIMATED LENGTH OF STAY: 5 - 7 days. Medications No Active Prescriptions or Reported Meds Allergies Coded Allergies: No Known Allergies (Unverified , 07/10/16) Carolina Haro Jul 11, 2016 21:05
[2016-07-12 06:00] VITALS: BP 146/74
[2016-07-12 07:17] LABS: MEAN CORPUSCULAR HGB CONC 34.2 g/dl (32.0-36.5); MEAN CORPUSCULAR VOLUME 87.8 fl (80.0-96.0); RED CELL DISTRIBUTION WIDTH 12.9 % (11.5-14.5); WHITE BLOOD COUNT 5.7 K/mm3 (4.0-10.0)
[2016-07-12 07:41] LABS: THYROXINE (T4) 9.5 UG/DL (4.5-12.0)
--- NOTE | 2016-07-12 09:38 | EDDOCDS ---
Physician Documentation [facility] Name: Shashank Zelaya Age: 25 yrs Sex: Male : 1990 Arrival Date: 07/10/2016 Time: 02:06 Bed [facility] Private MD: Barry Clarke [facility] Disposition: 07/10 06:48 Critical Care: Critical care not applicable. pc Disposition: 07/10/16 06:51 Hospitalization ordered by Santana Jalloh for Inpatient Admission. Preliminary diagnosis are Major depressive disorder, single episode, moderate, Suicide attempt. - Bed requested for Admit. - Status is Inpatient Admission. [id number] - Condition is Stable. - Problem is new. - Symptoms have improved. HPI: 02:16 This 25 yrs old Male presents to ER via Ambulance with complaints of Overdose. pc 02:16 The history is obtained from the patient, EMS providers, a police stenographer. The patient pc presents to the emergency department with depression, intentional drug overdose. The patient's intention was to commit suicide. At their worst, the symptoms were severe. In the emergency department, the symptoms are unchanged. 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 The patient ingested the following substances:. The patient has not experienced similar symptoms in the past. The patient has not recently seen a physician. Historical: - Allergies: No known drug Allergies; - Home Meds: 1. none - PMHx: none; - PSHx: none; - The history from nurses notes was reviewed: and I agree with what is documented. - Social history: Smoking status: Patient states was never smoker of tobacco. No barriers to communication noted, The patient speaks fluent Portuguese, Speaks appropriately for age. - : The pt / caregiver states he / she is not on anticoagulants. Home medication list is obtained from the patient. - Hospitalizations: : No recent hospitalization is reported. - Exposure Risk Screening:: None identified. - Immunization history:: All immunizations up-to-date. - Family history: Not pertinent. - Social history:: the patient smokes cigarettes the patient drinks alcohol. ROS: 02:16 All systems are negative except as listed. The psychiatric and neurological components pc are also addressed in the HPI. Exam: 02:16 General Appearance: alert, no acute distress. pc 02:16 ENT: ear, nose and throat normal, pharynx normal. 02:16 Eyes: pupils equal, round and reactive to light, extraocular motions intact. 02:16 Neck: The exam reveals no acute abnormalities. ROM is normal and painless. No nuchal rigidity is noted.. 02:16 Respiratory: breathing is even and unlabored, breath sounds are normal. 02:16 Cardiovascular: regular pulse rate, regular heart rhythm, normal heart sounds, equal and full pulses bilaterally. 02:16 Abdomen: soft, non-tender, no organomegaly, normal bowel sounds. 02:16 Skin: skin color is normal, warm, dry. 02:16 Extremities: The extremities have a grossly normal appearance, are non-tender, without acute ROM abnormalities. 02:16 Neuro: alert, oriented to person, place and time, cranial nerves normal as tested, no motor deficits, no sensory deficits. 02:16 Psych: mood is depressed, suicidal, affect is flat. Vital Signs: 02:12 BP 154 / 89 (auto/); ko2 02:13 Weight 76.61 kg / 168.9 lbs (M); jul 02:13 Pulse 79 MON; Pulse Ox 99% ; ko2 02:15 BP 154 / 89; Pulse 72; Resp 18; Temp 97.8(O); Pulse Ox 100% on R/A; Height 5 ft. 9 in. latosha (175.26 cm) (R); 02:15 BP 138 / 85 (auto/); ko2 02:16 Pulse 67 MON; Pulse Ox 100% ; ko2 02:30 BP 132 / 74 (auto/); ko2 02:31 Pulse 67 MON; Pulse Ox 98% ; ko2 02:45 BP 125 / 66 (auto/); ko2 02:46 Pulse 73 MON; ko2 03:00 BP 119 / 75 (auto/); ko2 03:00 Pulse 80 MON; ko2 03:15 BP 105 / 65 (auto/); ko2 03:16 Pulse 73 MON; Pulse Ox 99% ; ko2 03:30 BP 118 / 62 (auto/); ko2 03:31 Pulse 68 MON; Pulse Ox 98% ; ko2 03:45 BP 94 / 50 (auto/); ko2 03:46 Pulse 65 MON; Pulse Ox 97% ; ko2 04:00 BP 88 / 52 (auto/); ko2 04:00 Pulse 61 MON; Pulse Ox 96% ; ko2 04:01 BP 93 / 50 (auto/); ko2 04:01 Pulse 59 MON; Pulse Ox 96% ; ko2 04:15 BP 93 / 54 (auto/); ko2 04:16 Pulse 57 MON; Pulse Ox 97% ; ko2 04:30 BP 81 / 42 (auto/); ko2 04:30 Pulse 57 MON; Pulse Ox 97% ; ko2 04:47 BP 89 / 53 (auto/); ko2 04:48 Pulse 66 MON; Pulse Ox 98% ; ko2 05:00 BP 102 / 57 (auto/); ko2 05:01 Pulse 72 MON; Pulse Ox 99% ; ko2 05:15 BP 107 / 56 (auto/); ko2 05:16 Pulse 71 MON; Pulse Ox 100% ; ko2 05:30 BP 104 / 56 (auto/); ko2 05:30 Pulse 63 MON; Pulse Ox 99% ; ko2 05:45 BP 105 / 58 (auto/); ko2 05:46 Pulse 59 MON; Pulse Ox 97% ; ko2 06:42 BP 118 / 82; Pulse 76; Resp 18; Temp 97.4(T); Pulse Ox 97% on R/A; Pain 0/10; kb5 07:49 BP 135 / 68; Pulse 80; Resp 16; Temp 97.2(T); Pulse Ox 97% on R/A; dpm MDM: 02:11 Consult PFS/PSA/Vice President Media Relations: Patient's case requires discussion with on-call dianne Psychiatrist ordered. 02:11 PSA/PFS to call Nursing Operations Administrator, to enter patient data on [place] Safe Act if patient dianne involuntarily admitted or transferred for SI or HI ordered. 02:11 Chemist Food/Pulse Ox/q 15 min VS ordered. jul 02:11 Confirm accurate psychiatric medication list and times of last dosage ordered. jul 02:11 Detain Pt Until Medically/PFS Cleared ordered. jul 02:11 IV Saline Lock ordered. jul 02:12 Acetaminophen Level Ordered. EDMS 02:12 Basic Metabolic Profile Ordered. EDMS 02:12 Complete Blood Count Ordered. EDMS 02:12 Drug Eval Toxicology ED Only Ordered. EDMS 02:12 Ethyl Alcohol (ethanol) Ordered. EDMS 02:12 Liver Profile Ordered. EDMS 02:12 Salicylate Level Ordered. EDMS 02:12 Thyroid Stimulating Hormone Ordered. EDMS 02:13 ECG WITH READING ER PHYS+CARDIAG ordered. EDMS 02:15 Call Poison Control ordered. pc 02:16 Activated Charcoal (1g/kg) Suspension 75 grams PO once ordered. pc 02:16 Differential diagnosis: depression, suicide attempt, intentional drug overdose. Plan: pc labs, EKG, Poison Control. Test interpretation: EKG. 03:10 Complete Blood Count Reviewed. pc 03:10 Drug Eval Toxicology ED Only Reviewed. pc 03:26 Acetaminophen Level Reviewed. pc 03:26 Basic Metabolic Profile Reviewed. pc 03:26 Salicylate Level Reviewed. pc 03:26 Thyroid Stimulating Hormone Reviewed. pc 03:26 Ethyl Alcohol (ethanol) Reviewed. pc 03:26 Liver Profile Reviewed. pc 03:26 Redraw Acetaminophen (put time in details section) ordered. pc 04:21 Redraw Acetaminophen (put time in details section) complete. sew 04:21 ACETAMINOPHEN LEVEL Ordered. EDMS 05:41 ACETAMINOPHEN LEVEL Reviewed. pc 06:15 Financial registration complete. hs2 06:22 REGULAR DIET PLASTIC OLIVO+DIET ordered. EDMS 06:30 [facility] Payment Agreement was scanned into [email or web address] and attached to record. hs2 06:48 The patient has been medically cleared for psychiatric evaluation, admission and/or pc transfer. [place] Safe Act reporting: The patient poses a significant risk to self or others, and PSA/PFS has notified the Nursing Operations Administrator and he/she will complete the required customer data technician. Data reviewed: old medical records, vital signs, nurses notes, EKG(s), lab test results. Test interpretation: LAB - all labs as ordered have been reviewed, interpreted and considered in the overall management of the clinical presentation;. The patient has been re-examined and re-evaluated. The patient's symptoms have markedly improved after treatment. Other consultation: Poison control, The ED workers compensation consultant was notified and will evaluate the patient. 06:48 Disposition: The historical points, examination findings, and any diagnostic results pc supporting the provided diagnosis, were discussed with the patient or legal guardian. The need for further work-up and/or treatment in the hospital was explained. 06:52 Consult PFS/PSA/Vice President Media Relations: Patient's case requires discussion with on-call jl Psychiatrist complete. 06:52 PSA/PFS to call Nursing Operations Administrator, to enter patient data on [place] Safe Act if patient jl involuntarily admitted or transferred for SI or HI complete. 06:57 REGULAR DIET ordered. EDMS 06:58 [facility] Legal paperwork was scanned into [email or web address] and attached to record. jl 06:58 Admit to [facility]: ordered. EDMS 12:25 ECG/EKG was scanned into [employer] and attached to record. gb 12:26 PCR was scanned into [employer] and attached to record. gb EC:16 Rate is 62 beats/min. Rhythm is regular, Normal Sinus Rhythm. QRS Mobile is Normal. TN pc interval is normal. QRS interval is normal. QT interval is normal. No Q waves. T waves are Normal. No ST changes noted. Clinical impression: Normal Sinus Rhythm. Administered Medications: 02:39 Drug: Activated Charcoal (1g/kg) 75 grams [activated charcoal 25 gram/120 mL oral ko2 suspension (7200 drps)] Route: PO; Signatures: Dispatcher [employer] EDMS Elvin Jeff MD MD pc Newman, Jill New, RN RN jan LaFontaine, Jon, PSA PSA Isadora Baez, Reg Reg gb Tara De Leon RN RN [email or web address] Misty Basilio Kari, RN RN ko2 Shi Gonzalez, Reg Reg hs2 The chart was reviewed and I authenticate all verbal orders and agree with the evaluation and treatment provided.Corrections: (The following items were deleted from the chart) 02:15 02:11 Consult PFS/PSA/Vice President Media Relations ordered. 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
--- NOTE | 2016-07-12 09:38 | EDDOCDS ---
Nurse's Notes [facility] Name: Shashank Zelaya Age: 25 yrs Sex: Male : 1990 Arrival Date: 07/10/2016 Time: 02:06 Bed [facility] Private MD: Barry Clarke [facility] Diagnosis: Major depressive disorder, single episode, moderate;Suicide attempt Presentation: 07/10 02:11 Presenting complaint: EMS states: pt took a full box of mucinex (16 tabs) and tylenol ko2 500mg (12 tabs) around 1 am and told his . Pt states he was intentionally trying to hurt himself and he has been contemplating suicide the last month. Suicide/Homicide risk assessment- The patient admits to and/or has been reported to be having suicidal ideations. 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 Transition of care: patient was not received from another setting of care. Care prior to arrival: See EMS report. Saline lock initiated. Glucose check. 95. 02:11 Acuity: DANA Level 2 ko2 02:11 Method Of Arrival: Ambulance ko2 03:19 Adult Sepsis Screening: The patient does not have new or worsening altered mentation. ko2 Patient's respiratory rate is less than 22. Systolic blood pressure is greater than 100. Patient has a qSOFA score of 0- Negative Sepsis Screen. Triage Assessment: 02:15 General: Appears in no apparent distress, Behavior is cooperative. Pain: Denies pain. ko2 HIV screening NA for this visit Offered previously. The patient is triaged at the bedside. See Assessment in Nurses Notes section of ED record. Neurological: Level of Consciousness is awake, alert. Cardiovascular: Heart tones present Rhythm is regular. Respiratory: Airway is patent Respiratory effort is even, unlabored. GI: Abdomen is non- distended Bowel sounds present X 4 quads. Abd is soft and non tender X 4 quads. Derm: Skin is normal. Musculoskeletal: Range of motion intact in all extremities. Historical: - Allergies: No known drug Allergies; - Home Meds: 1. none - PMHx: none; - PSHx: none; - The history from nurses notes was reviewed: and I agree with what is documented. - Social history: Smoking status: Patient states was never smoker of tobacco. No barriers to communication noted, The patient speaks fluent [place], Speaks appropriately for age. - : The pt / caregiver states he / she is not on anticoagulants. Home medication list is obtained from the patient. - Hospitalizations: : No recent hospitalization is reported. - Exposure Risk Screening:: None identified. - Immunization history:: All immunizations up-to-date. - Family history: Not pertinent. - Social history:: the patient smokes cigarettes the patient drinks alcohol. Screenin:28 Screening information is obtained from the patient. Fall risk: No risks identified. dianne Assistance ADL's: requires no assistance with activities of daily living. Abuse/DV Screen: The patient / caregiver reports he/she is: not in a situation that causes fear, pain or injury. Nutritional screening: No deficits noted. Advance Directives: Currently, there is no health care proxy. There is no active DNR order. There is no living will. There is no Power of Curriculum Consultant. Advance directive information has not previously been placed in an [facility] medical record. Further advance directive information is declined. home support is adequate. Assessment: 02:17 General: See triage assessment. ko2 03:18 General: Appears in no apparent distress, comfortable, Behavior is appropriate for age, ko2 cooperative. Pain: Denies pain. Neurological: Level of Consciousness is awake, alert. Cardiovascular: Rhythm is regular. Respiratory: Airway is patent Respiratory effort is even, unlabored, Respiratory pattern is regular, symmetrical. Derm: Skin is normal. 04:18 General: Appears in no apparent distress, comfortable, Behavior is appropriate for age, ko2 cooperative. Pain: Denies pain. Neurological: Level of Consciousness is awake, alert. Cardiovascular: Rhythm is sinus bradycardia No ectopy. Respiratory: Airway is patent Respiratory effort is even, unlabored. Derm: Skin is normal. 05:23 General: Appears in no apparent distress, comfortable, Behavior is appropriate for age, ko2 cooperative. Pain: Denies pain. Neurological: Level of Consciousness is awake, alert. Cardiovascular: Rhythm is sinus bradycardia No ectopy. Respiratory: Airway is patent Respiratory effort is even, unlabored. Derm: Skin is normal. 06:25 General: Appears in no apparent distress, comfortable, Behavior is appropriate for age, ka4 cooperative, quiet. Respiratory: Airway is patent Respiratory effort is even, unlabored, Respiratory pattern is regular, symmetrical. Derm: Skin is pink, warm & dry. 07:15 Reassessment: Patient appears in no apparent distress at this time. Breakfast tray has jc4 been delivered. 08:34 General: Appears in no apparent distress, comfortable, Behavior is cooperative. Pain: jc4 Denies pain. Neurological: Level of Consciousness is awake, alert, Oriented to person, place, time. Respiratory: Airway is patent Respiratory effort is even, unlabored, Respiratory pattern is regular, symmetrical. Derm: Skin is pink, warm & dry. 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 [facility] Behavioral Health: jovanna The patient is not an established patient of [facility] Behavioral Health. Referral Information: Evaluation referral is generated by [facility], accompanied by MPs. The patient was referred for evaluation because he took an intentional overdose, with suicidal intent. Subjective: The patients chief complaint is "I've lost everything; it's because of the ". Delusions are denied. Patient's mood is depressed & hopeless. Hallucinations are denied. 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 He reports being from [place], [place], as is his . He states that she followed him here from [place] & has since decided that she can no longer stand the change in climate & geography in general. He says that they went home for block leave & talked about making some changes in their lives in order to make her more comfortable, however she phoned him on his way back & said that she was "done". They have a 1.5 y/o child & he says that his decision to enlist has now cost him his family & he sees nothing left for him. He states that tonight he was texting with a friend in [place] that was trying to make him feel better, but then his turned away from him & ignored him when he began to cry, prompting the overdose. He denies having any relevant hx prior to now. When asked if he still feels suicidal, he replied, "I've lost everything", without committing either way. Patient appears hopeless & noted to be tearful at times during the interview. Mental Health history: no relevant mental health problems or treatments. Mental Health Admissions: None. Current Outpatient Mental Health Services: None. Current living environment is The patient currently lives with his & 1.5 y/o child. Patient presents to Emergency Department with the following symptoms within the past 2 weeks: anxiety, depressed mood, excessive guilt, feelings of helplessness/hopelessness, marital problem, sleep disturbance - insomnia, suicidal ideation with attempt/gesture by pills. Substance abuse: Pt denies. Mental status exam: Patients appearance is appropriate, Patient's behavior is cooperative, Speech is normal. Affect is appropriate. Mood is depressed. Hallucinations are denied. Appetite is normal. Memory is good. Energy level is normal. Content of thought is depressive & hopeless Thought process is intact. Cognitive level is oriented to person, place, time and situation Patient's insight is fair. Judgement is poor. Rapport with interviewer is good. Suicidal Ideation present with a plan to kill self by pills. Homicidal ideation is denied. 06:50 Disposition: Medically cleared for disposition by Elvin Jeff MD Psychiatric Consult jl is performed by phone with Dr Santana Jalloh. [facility] Admission Criteria: The patient has had a suicide attempt in the recent past. The patient requires continuous observation and/or control to protect self, others or property. The patient's care requires a multi-modal treatment plan under close supervision and coordination due to the complexity and severity of the patient's symptoms. Legal Status: Patient's legal status will be Emergency admission: 39. [place] Safe Act: [place] Safe Act is applicable to this patient. The patient poses a risk to self or other and the Nursing Drier Operator has been notified. He/She will enter the patient's data. DSM-V Differential Diagnosis: Unspecified Depressive Disorder (F32.9). Insurance Pre-Certification: Not Required. 07:46 Awaiting: transfer to [facility]. Vital Signs: 02:12 BP 154 / 89 (auto/); ko2 02:13 Weight 76.61 kg (M); jul 02:13 Pulse 79 MON; Pulse Ox 99% ; ko2 02:15 BP 154 / 89; Pulse 72; Resp 18; Temp 97.8(O); Pulse Ox 100% on R/A; Height 5 ft. 9 in. latosha (175.26 cm) (R); 02:15 BP 138 / 85 (auto/); ko2 02:16 Pulse 67 MON; Pulse Ox 100% ; ko2 02:30 BP 132 / 74 (auto/); ko2 02:31 Pulse 67 MON; Pulse Ox 98% ; ko2 02:45 BP 125 / 66 (auto/); ko2 02:46 Pulse 73 MON; ko2 03:00 BP 119 / 75 (auto/); ko2 03:00 Pulse 80 MON; ko2 03:15 BP 105 / 65 (auto/); ko2 03:16 Pulse 73 MON; Pulse Ox 99% ; ko2 03:30 BP 118 / 62 (auto/); ko2 03:31 Pulse 68 MON; Pulse Ox 98% ; ko2 03:45 BP 94 / 50 (auto/); ko2 03:46 Pulse 65 MON; Pulse Ox 97% ; ko2 04:00 BP 88 / 52 (auto/); ko2 04:00 Pulse 61 MON; Pulse Ox 96% ; ko2 04:01 BP 93 / 50 (auto/); ko2 04:01 Pulse 59 MON; Pulse Ox 96% ; ko2 04:15 BP 93 / 54 (auto/); ko2 04:16 Pulse 57 MON; Pulse Ox 97% ; ko2 04:30 BP 81 / 42 (auto/); ko2 04:30 Pulse 57 MON; Pulse Ox 97% ; ko2 04:47 BP 89 / 53 (auto/); ko2 04:48 Pulse 66 MON; Pulse Ox 98% ; ko2 05:00 BP 102 / 57 (auto/); ko2 05:01 Pulse 72 MON; Pulse Ox 99% ; ko2 05:15 BP 107 / 56 (auto/); ko2 05:16 Pulse 71 MON; Pulse Ox 100% ; ko2 05:30 BP 104 / 56 (auto/); ko2 05:30 Pulse 63 MON; Pulse Ox 99% ; ko2 05:45 BP 105 / 58 (auto/); ko2 05:46 Pulse 59 MON; Pulse Ox 97% ; ko2 06:42 BP 118 / 82; Pulse 76; Resp 18; Temp 97.4(T); Pulse Ox 97% on R/A; Pain 0/10; kb5 07:49 BP 135 / 68; Pulse 80; Resp 16; Temp 97.2(T); Pulse Ox 97% on R/A; dpm Vitals: 03:20 Log In Time N/A - ambulance arrival. ko2 ED Course: 02:07 Ellen Caldwell,RN is Primary Nurse. sew 02:07 Patient visited by Misty Basilio. sew 02:07 Patient moved to 2 sew 02:08 Other - Complete Info On Cds is Private Physician. sew 02:08 Barry Clarke [facility] is Private Physician. sew 02:14 Elvin Jeff MD is Attending Physician. pc 02:14 Triage Initiated ko2 02:15 Pt greeted and oriented to ED. Patient advised of names of staff involved in care, latosha location of call gale, wait times and NPO status. Accompanied by Law Enforcement, Patient has correct armband on for positive identification. Placed in psych safe attire. Bed in low position. Call light in reach. Side rails up X2. radiology supervisor on. Pulse ox on. NIBP on. 02:18 Patient visited by Magui Conde PCA. latosha 02:18 EKG done. (by ED staff). Reviewed by Elvin Jeff MD. latosha 02:24 Patient visited by Elvin Jeff MD. pc 02:28 The patient / caregiver is instructed regarding the plan of care and ED course. jul 02:30 Poison Control notified at 02:25 recommendations reviewed with recommendations relayed jul to Dr Jeff per recommendations of Silvia at Poison Control. 02:39 Drug Eval Toxicology ED Only Sent. jul 03:18 Patient visited by Ellen Caldwell,CHEKO. ko2 03:19 Maintain field IV. Dressing intact. Good blood return noted. Site clean & dry. Gauge & ko2 site: 18 gauge right AC. 04:18 Patient visited by Ellen Caldwell,RN. ko2 05:01 Patient visited by Ellen Caldwell,RN. ko2 05:02 ACETAMINOPHEN LEVEL Sent. ko2 05:58 Patient visited by Ellen Caldwell,CHEKO. ko2 06:05 Patient moved to [facility] sew 06:06 Discontinued lock intact, bleeding controlled, pressure dressing applied, No ko2 redness/swelling at site. 06:15 Pt greeted and oriented to ED. Patient advised of names of staff involved in care, kb5 location of call gale, wait times and NPO status. Patient has correct armband on for positive identification. Placed in psych safe attire. Bed in low position. Call light in reach. Side rails up X 1. Security observing. Property removed, inventory done, secured in belongings bag- Placed in Locker 2. Patient in psych safe attire prior to entering [facility]. Door closed. Noise minimized. Visitors limited. Warm blanket given. Psych Safety Check: Location: Psych Room. Visual Assessment: Cooperative. 06:20 Patient visited by Madi Mcpherson PCA. kb5 06:26 Patient visited by Soo Rodriguez LPN. ka4 06:30 Patient visited by Madi Mcpherson PCA. kb5 06:30 Psych Safety Check: Location: Psych Room. Visual Assessment: Cooperative. kb5 06:30 [facility] Payment Agreement was scanned into [employer] and attached to record. hs2 06:45 Patient visited by Madi Mcpherson PCA. kb5 06:45 Psych Safety Check: Location: Psych Room. Visual Assessment: Cooperative. kb5 06:51 Santana Jalloh is Hospitalizing Provider. pc 06:58 [facility] Legal paperwork was scanned into [employer] and attached to record. jl 07:00 Tara De Leon, CHEKO is Primary Nurse. jc4 07:00 Psych Safety Check: Location: Psych Room. Visual Assessment: Cooperative. kb5 07:03 Patient visited by Madi Mcpherson PCA. kb5 07:20 Patient visited by Miles Escobar. dpm 07:31 Primary Nurse role handed off by Ellen Caldwell,CHEKO kpj 07:36 Patient visited by Miles Escobar. dpm 07:52 Patient visited by Miles Escobar. dpm 08:00 Patient visited by Miles Escobar. dpm 08:14 Patient visited by Miles Escobar. dpm 08:30 Patient visited by Miles Escobar. dpm 08:36 EKG-ADULT Returned. EDMS 08:37 No procedures done that require assistance. jc4 12:25 ECG/EKG was scanned into [employer] and attached to record. gb 12:26 PCR was scanned into [employer] and attached to record. gb Administered Medications: 02:39 Drug: Activated Charcoal (1g/kg) 75 grams [activated charcoal 25 gram/120 mL oral ko2 suspension (7200 drps)] Route: PO; Attachments: 06:58 [facility] Legal paperwork jl Order Results: Lab Order: Acetaminophen Level; SPEC'M 07/10/16 02:23 Test: ACETAMINOPHEN LEVEL; Value: 53.4; Range: 10.0-30.0; Abnormal: Above high normal; Units: UG/ML; Status: F Lab Order: Basic Metabolic Profile; SPEC07/10/16 02:23 Test: GLUCOSE, FASTING; Value: 95; Range: 70-105; Units: MG/DL; Status: F Test: BLOOD UREA NITROGEN; Value: 20; Range: 7-18; Abnormal: Above high normal; Units: MG/DL; Status: F Test: CREATININE FOR GFR; Value: 1.18; Range: 0.70-1.30; Units: MG/DL; Status: F Test: GLOMERULAR FILTRATION RATE; Value: > 60.0; Range: >60; Status: F Test: SODIUM LEVEL; Value: 141; Range: 136-145; Units: MEQ/L; Status: F Test: POTASSIUM SERUM; Value: 3.6; Range: 3.5-5.1; Units: MEQ/L; Status: F Test: CHLORIDE LEVEL; Value: 104; Range: 98-107; Units: MEQ/L; Status: F Test: CARBON DIOXIDE LEVEL; Value: 26; Range: 21-32; Units: MEQ/L; Status: F Test: ANION GAP; Value: 11; Range: 8-16; Units: MEQ/L; Status: F Test: CALCIUM LEVEL; Value: 8.6; Range: 8.5-10.1; Units: MG/DL; Status: F Test Note: ; Units are mL/min/1.73 m2 Chronic Kidney Disease Staging per NKF: Stage I & II GFR >=60 Normal to Mildly Decreased Stage III GFR 30-59 Moderately Decreased Stage IV GFR 15-29 Severely Decreased Stage V GFR <15 Very Little GFR Left ESRD GFR <15 on [facility] Lab Order: Complete Blood Count; SPEC07/10/16 02:23 Test: WHITE BLOOD COUNT; Value: 10.6; Range: 4.0-10.0; Abnormal: Above high normal; Units: K/mm3; Status: F Test: RED BLOOD COUNT; Value: 5.16; Range: 4.30-6.10; Units: M/mm3; Status: F Test: HEMOGLOBIN; Value: 15.2; Range: 14.0-18.0; Units: g/dl; Status: F Test: HEMATOCRIT; Value: 44.6; Range: 42.0-52.0; Units: %; Status: F Test: MEAN CORPUSCULAR VOLUME; Value: 86.4; Range: 80.0-96.0; Units: fl; Status: F Test: MEAN CORPUSCULAR HEMOGLOBIN; Value: 29.5; Range: 27.0-33.0; Units: pg; Status: F Test: MEAN CORPUSCULAR HGB CONC; Value: 34.1; Range: 32.0-36.5; Units: g/dl; Status: F Test: RED CELL DISTRIBUTION WIDTH; Value: 12.9; Range: 11.5-14.5; Units: %; Status: F Test: PLATELET COUNT, AUTOMATED; Value: 255; Range: 150-450; Units: k/mm3; Status: F Lab Order: Drug Eval Toxicology ED Only; SPEC'M 07/10/16 02:38 Test: AMPHETAMINES LEVEL URINE; Value: NEGATIVE; Range: NEGATIVE; Status: F Test: BARBITURATES URINE; Value: NEGATIVE; Range: NEGATIVE; Status: F Test: BENZODIAZEPINES URINE; Value: NEGATIVE; Range: NEGATIVE; Status: F Test: CANNABINOIDS URINE; Value: NEGATIVE; Range: NEGATIVE; Status: F Test: COCAINE METABOLITE URINE; Value: NEGATIVE; Range: NEGATIVE; Status: F Test: METHADONE URINE; Value: NEGATIVE; Range: NEGATIVE; Status: F Test: OPIATES URINE; Value: NEGATIVE; Range: NEGATIVE; Status: F Test: TRICYCLIC ANTIDEPRESS URINE; Value: NEGATIVE; Range: NEGATIVE; Status: F Test Note: ; ALL PRESUMPTIVE POSITIVE FINDINGS ARE UNCONFIRMED NORMAL VALUES THRESHOLD IN NG/ML AMPHETAMINES 1000 METHAMPHETAMINES 1000 BARBITURATES 300 BENZODIAZEPINES 300 CANNABINOIDS (THC) 50 COCAINE METABOLITE 300 METHADONE 300 OPIATES 300 PHENCYCLIDINE 25 TRICYCLIC ANTIDEPRESSANTS 1000 RESULTS ARE FOR MEDICAL PURPOSES ONLY. ALL URINE SPECIMENS WILL BE SAVED FOR 3 DAYS. IF CONFIRMATION OF A PRESUMPTIVE POSTIVE SCREEN RESULT IS DESIRED, CALL CHEMISTRY ([phone]) AND REQUEST URINE TO BE SENT TO REFERENCE LAB. FOR A LIST OF CLOSELY RELATED COMPOUNDS PLEASE CALL THE LAB. Lab Order: Ethyl Alcohol (ethanol); SPEC'M 07/10/16 02:23 Test: ETHYL ALCOHOL (ETHANOL); Value: < 0.003; Range: 0.000-0.010; Units: %; Status: F Lab Order: Liver Profile; SPEC'M 07/10/16 02:23 Test: AST/SGOT; Value: 28; Range: 15-37; Units: U/L; Status: F Test: ALT/SGPT; Value: 37; Range: 12-78; Units: U/L; Status: F Test: ALKALINE PHOSPHATASE; Value: 77; Range: 45-117; Units: U/L; Status: F Test: BILIRUBIN,TOTAL; Value: 0.6; Range: 0.2-1.0; Units: MG/DL; Status: F Test: BILIRUBIN,DIRECT; Value: < 0.1; Range: 0.0-0.2; Units: MG/DL; Status: F Test: TOTAL PROTEIN; Value: 7.7; Range: 6.4-8.2; Units: GM/DL; Status: F Test: ALBUMIN; Value: 4.2; Range: 3.2-5.2; Units: GM/DL; Status: F Test: ALBUMIN/GLOBULIN RATIO; Value: 1.20; Range: 1.00-1.93; Status: F Lab Order: Salicylate Level; SPEC'07/10/16 02:23 Test: SALICYLATE LEVEL; Value: < 1.7; Range: 5.0-30.0; Abnormal: Below low normal; Units: MG/DL; Status: F Lab Order: Thyroid Stimulating Hormone; SPEC'07/10/16 02:23 Test: THYROID STIMULATING HORMONE; Value: 5.090; Range: 0.358-3.740; Abnormal: Above high normal; Units: uIU/ML; Status: F Lab Order: ACETAMINOPHEN LEVEL; SPEC'07/10/16 05:00 Test: ACETAMINOPHEN LEVEL; Value: 28.0; Range: 10.0-30.0; Units: UG/ML; Status: F Radiology Order: EKG-ADULT Test: EKG-ADULT REASON FOR EXAMINATION: overdose; Stationary ECG Study; [facility] - ED; ; Test Date: 2016-07-10; Pat Name: SHASHANK ZELAYA Department:; Room: -; Gender: M 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 pc 08:35 Discharge Assessment: Patient awake, alert and oriented x 3. No cognitive and/or jc4 functional deficits noted. Patient verbalized understanding of disposition instructions. 08:36 Discharge Assessment: patient administered narcotics - no. The following High Risk [facility] Discharge criteria are identified: Yes, patient has been evaluated by PSA during this ED visit. Admitted to Psych accompanied by tech, via wheelchair, with chart. Condition: stable. No special radiology studies were completed. 08:37 Patient left the ED. 4 Signatures: Dispatcher [employer] EDMS Elvin Jeff MD MD pc Jobson, Karen, RN RN Emilia Aguilar, RN RN Antonio Saha, PSA PSA ac Darren Pak, PSA PSA Isadora Baez, Reg Reg gb Madi Mcpherson, CUSTOM SHOP WORKER CUSTOM SHOP WORKER kb5 Tara De Leon RN RN jc4 Magui Conde, CUSTOM SHOP WORKER CUSTOM SHOP WORKER latosha Marolf, Miles dpMisty Melchor Kodie,JEWEL DIAMETER GAUGER JEWEL DIAMETER GAUGER ka4 Ellen Caldwell,RN RN ko2 Shi Gonzalez, Reg Reg hs2 Corrections: (The following items were deleted from the chart) 06:47 06:42 Pulse 76bpm; Resp 18bpm; Pulse Ox 97% RA; Temp 97.4F Tympanic; Pain 0/10; kb5 kb5 Chart Complete MTDD
--- NOTE | 2016-07-12 09:38 | EDDOCDS ---
Physician Documentation [facility] [facility] Name: Shashank Zelaya Age: 25 yrs Sex: Male : 1990 Arrival Date: 07/10/2016 Time: 02:06 Bed [facility] Private MD: Barry Clarke [facility] Disposition: 07/10 06:48 Critical Care: Critical care not applicable. pc Disposition: 07/10/16 06:51 Hospitalization ordered by Santana Jalloh for Inpatient Admission. Preliminary diagnosis are Major depressive disorder, single episode, moderate, Suicide attempt. - Bed requested for Admit. - Status is Inpatient Admission. [id number] - Condition is Stable. - Problem is new. - Symptoms have improved. HPI: 02:16 This 25 yrs old Male presents to ER via Ambulance with complaints of Overdose. pc 02:16 The history is obtained from the patient, EMS providers, a police liaison. The patient pc presents to the emergency department with depression, intentional drug overdose. The patient's intention was to commit suicide. At their worst, the symptoms were severe. In the emergency department, the symptoms are unchanged. 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 The patient ingested the following substances:. The patient has not experienced similar symptoms in the past. The patient has not recently seen a physician. Historical: - Allergies: No known drug Allergies; - Home Meds: 1. none - PMHx: none; - PSHx: none; - The history from nurses notes was reviewed: and I agree with what is documented. - Social history: Smoking status: Patient states was never smoker of tobacco. No barriers to communication noted, The patient speaks fluent Nepali, Speaks appropriately for age. - : The pt / caregiver states he / she is not on anticoagulants. Home medication list is obtained from the patient. - Hospitalizations: : No recent hospitalization is reported. - Exposure Risk Screening:: None identified. - Immunization history:: All immunizations up-to-date. - Family history: Not pertinent. - Social history:: the patient smokes cigarettes the patient drinks alcohol. ROS: 02:16 All systems are negative except as listed. The psychiatric and neurological components pc are also addressed in the HPI. Exam: 02:16 General Appearance: alert, no acute distress. pc 02:16 ENT: ear, nose and throat normal, pharynx normal. 02:16 Eyes: pupils equal, round and reactive to light, extraocular motions intact. 02:16 Neck: The exam reveals no acute abnormalities. ROM is normal and painless. No nuchal rigidity is noted.. 02:16 Respiratory: breathing is even and unlabored, breath sounds are normal. 02:16 Cardiovascular: regular pulse rate, regular heart rhythm, normal heart sounds, equal and full pulses bilaterally. 02:16 Abdomen: soft, non-tender, no organomegaly, normal bowel sounds. 02:16 Skin: skin color is normal, warm, dry. 02:16 Extremities: The extremities have a grossly normal appearance, are non-tender, without acute ROM abnormalities. 02:16 Neuro: alert, oriented to person, place and time, cranial nerves normal as tested, no motor deficits, no sensory deficits. 02:16 Psych: mood is depressed, suicidal, affect is flat. Vital Signs: 02:12 BP 154 / 89 (auto/); ko2 02:13 Weight 76.61 kg / 168.9 lbs (M); jul 02:13 Pulse 79 MON; Pulse Ox 99% ; ko2 02:15 BP 154 / 89; Pulse 72; Resp 18; Temp 97.8(O); Pulse Ox 100% on R/A; Height 5 ft. 9 in. latosha (175.26 cm) (R); 02:15 BP 138 / 85 (auto/); ko2 02:16 Pulse 67 MON; Pulse Ox 100% ; ko2 02:30 BP 132 / 74 (auto/); ko2 02:31 Pulse 67 MON; Pulse Ox 98% ; ko2 02:45 BP 125 / 66 (auto/); ko2 02:46 Pulse 73 MON; ko2 03:00 BP 119 / 75 (auto/); ko2 03:00 Pulse 80 MON; ko2 03:15 BP 105 / 65 (auto/); ko2 03:16 Pulse 73 MON; Pulse Ox 99% ; ko2 03:30 BP 118 / 62 (auto/); ko2 03:31 Pulse 68 MON; Pulse Ox 98% ; ko2 03:45 BP 94 / 50 (auto/); ko2 03:46 Pulse 65 MON; Pulse Ox 97% ; ko2 04:00 BP 88 / 52 (auto/); ko2 04:00 Pulse 61 MON; Pulse Ox 96% ; ko2 04:01 BP 93 / 50 (auto/); ko2 04:01 Pulse 59 MON; Pulse Ox 96% ; ko2 04:15 BP 93 / 54 (auto/); ko2 04:16 Pulse 57 MON; Pulse Ox 97% ; ko2 04:30 BP 81 / 42 (auto/); ko2 04:30 Pulse 57 MON; Pulse Ox 97% ; ko2 04:47 BP 89 / 53 (auto/); ko2 04:48 Pulse 66 MON; Pulse Ox 98% ; ko2 05:00 BP 102 / 57 (auto/); ko2 05:01 Pulse 72 MON; Pulse Ox 99% ; ko2 05:15 BP 107 / 56 (auto/); ko2 05:16 Pulse 71 MON; Pulse Ox 100% ; ko2 05:30 BP 104 / 56 (auto/); ko2 05:30 Pulse 63 MON; Pulse Ox 99% ; ko2 05:45 BP 105 / 58 (auto/); ko2 05:46 Pulse 59 MON; Pulse Ox 97% ; ko2 06:42 BP 118 / 82; Pulse 76; Resp 18; Temp 97.4(T); Pulse Ox 97% on R/A; Pain 0/10; kb5 07:49 BP 135 / 68; Pulse 80; Resp 16; Temp 97.2(T); Pulse Ox 97% on R/A; dpm MDM: 02:11 Consult PFS/PSA/Wardsperson: Patient's case requires discussion with on-call dianne Psychiatrist ordered. 02:11 PSA/PFS to call Nursing Geometrician, to enter patient data on [place] Safe [place] if patient dianne involuntarily admitted or transferred for SI or HI ordered. 02:11 Applications Processor/Pulse Ox/q 15 min VS ordered. jul 02:11 Confirm accurate psychiatric medication list and times of last dosage ordered. jul 02:11 Detain Pt Until Medically/PFS Cleared ordered. jul 02:11 IV Saline Lock ordered. jul 02:12 Acetaminophen Level Ordered. EDMS 02:12 Basic Metabolic Profile Ordered. EDMS 02:12 Complete Blood Count Ordered. EDMS 02:12 Drug Eval Toxicology ED Only Ordered. EDMS 02:12 Ethyl Alcohol (ethanol) Ordered. EDMS 02:12 Liver Profile Ordered. EDMS 02:12 Salicylate Level Ordered. EDMS 02:12 Thyroid Stimulating Hormone Ordered. EDMS 02:13 ECG WITH READING ER PHYS+CARDIAG ordered. EDMS 02:15 Call Poison Control ordered. pc 02:16 Activated Charcoal (1g/kg) Suspension 75 grams PO once ordered. pc 02:16 Differential diagnosis: depression, suicide attempt, intentional drug overdose. Plan: pc labs, EKG, Poison Control. Test interpretation: EKG. 03:10 Complete Blood Count Reviewed. pc 03:10 Drug Eval Toxicology ED Only Reviewed. pc 03:26 Acetaminophen Level Reviewed. pc 03:26 Basic Metabolic Profile Reviewed. pc 03:26 Salicylate Level Reviewed. pc 03:26 Thyroid Stimulating Hormone Reviewed. pc 03:26 Ethyl Alcohol (ethanol) Reviewed. pc 03:26 Liver Profile Reviewed. pc 03:26 Redraw Acetaminophen (put time in details section) ordered. pc 04:21 Redraw Acetaminophen (put time in details section) complete. sew 04:21 ACETAMINOPHEN LEVEL Ordered. EDMS 05:41 ACETAMINOPHEN LEVEL Reviewed. pc 06:15 Financial registration complete. hs2 06:22 REGULAR DIET PLASTIC OLIVO+DIET ordered. EDMS 06:30 [facility] Payment Agreement was scanned into [employer] and attached to record. hs2 06:48 The patient has been medically cleared for psychiatric evaluation, admission and/or pc transfer. [place] Safe Act reporting: The patient poses a significant risk to self or others, and PSA/PFS has notified the Nursing Geometrician and he/she will complete the required clinical data manager. Data reviewed: old medical records, vital signs, nurses notes, EKG(s), lab test results. Test interpretation: LAB - all labs as ordered have been reviewed, interpreted and considered in the overall management of the clinical presentation;. The patient has been re-examined and re-evaluated. The patient's symptoms have markedly improved after treatment. Other consultation: Poison control, The ED parish worker was notified and will evaluate the patient. 06:48 Disposition: The historical points, examination findings, and any diagnostic results pc supporting the provided diagnosis, were discussed with the patient or legal guardian. The need for further work-up and/or treatment in the hospital was explained. 06:52 Consult PFS/PSA/Wardsperson: Patient's case requires discussion with on-call jl Psychiatrist complete. 06:52 PSA/PFS to call Nursing Geometrician, to enter patient data on [place] Safe [place] if patient jl involuntarily admitted or transferred for SI or HI complete. 06:57 REGULAR DIET ordered. EDMS 06:58 M[facility] Legal paperwork was scanned into [employer] and attached to record. jl 06:58 Admit to [facility]: ordered. EDMS 12:25 ECG/EKG was scanned into [employer] and attached to record. gb 12:26 PCR was scanned into [employer] and attached to record. gb EC:16 Rate is 62 beats/min. Rhythm is regular, Normal Sinus Rhythm. QRS [place] is Normal. LA pc interval is normal. QRS interval is normal. QT interval is normal. No Q waves. T waves are Normal. No ST changes noted. Clinical impression: Normal Sinus Rhythm. Administered Medications: 02:39 Drug: Activated Charcoal (1g/kg) 75 grams [activated charcoal 25 gram/120 mL oral ko2 suspension (7200 drps)] Route: PO; Signatures: Dispatcher [employer] EDMS Elvin Jeff MD MD pc Newman, Jill New, RN RN jan LaFontaine, Jon, PSA PSA Isadora Baez, Reg Reg gb Tara De Leon RN RN [email or web address] Misty Basilio Kari, RN RN ko2 Shi Gonzalez, Reg Reg hs2 The chart was reviewed and I authenticate all verbal orders and agree with the evaluation and treatment provided.Corrections: (The following items were deleted from the chart) 02:15 02:11 Consult PFS/PSA/Wardsperson ordered. 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
--- NOTE | 2016-07-12 17:05 | IPNPDOC ---
[facility] Progress Note Progress Note DATE: 07/12/16 HISTORY: Patient appears to be adjusting to unit well, is observed to be visible on unit engaging with peers, and has been attending groups. Patient informs typewriter tester that he feels "better," and believes he should be discharged today so that he can return home to his and child. Patient minimizes recent suicide attempt and the gravity of the events leading up to current hospitalization. Patient continues to deny need for medication and informs typewriter tester that he feels his life challenges would be resolved if he was not in the . When asked how meeting with command went this morning patient states, "Good, we talked and I will go back to [place] but I want to get out of the and go back to [place]." Patient denies symptoms of anxiety and depression, denies suicidal and homicidal ideation, denies audiovisual hallucinations, and denies urge to engage in self-injurious behavior. Patient indicates he has been sleeping well and denies nightmares. Patient notes appetite, concentration, and energy levels are normal. VITAL SIGNS: See below. NEW TEST RESULTS: No new results. EKG on 07/10/16 SR. Labs on admission indicate elevated WBCs, elevated BUN, elevated TSH. Leukocytosis, patient is asymptomatic , PA is monitoring. Acetaminophen 53.4 on Follow-up labs on 07/12/15 TSH normal, hematology within normal limits. CURRENT MEDICATIONS: See below. 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 Behavior: Patient displays no psychomotor agitation Attitude: Pleasant and cooperative with interview. Speech: Spontaneous, normal quantity, normal rate, normal volume Thought Content: Denies suicidal/homicidal ideation. Denies auditory/visual hallucination. Does not appear to be responding to internal stimuli. Does not appear internally preoccupied. Thought Process: Logical, linear, goal-oriented. Mood: "I'm fine, really want to be home by the weekend." Affect: Euthymic, full range, congruent to stated mood. Cognition: Grossly intact. Orientation: Awake, alert, oriented times three. Insight and Judgement: Poor DIAGNOSES: Adjustment disorder with mixed anxiety and depressed mood, rule out MDD ASSESSMENT: Patient appears to be adjusting to unit, reiterates today he made a "mistake" when he attempted to overdose. Patient states he is wanting to discharge so he can return home to be with his for the weekend and help with childcare. Patient denied all safety concerns related to and child but was encouraged to contact command who can put in touch with [facility] supportive services if for some reason he feels becomes unable to manage childcare on her own. Patient remains superficially bright and continues to minimize the events which led to his current hospitalization. Patient also reiterates today that he wants to be released from the [facility] and informs typewriter tester that command is aware. Patient is agreeing to return to [place] and participate in outpatient behavioral health, though he indicates he does not feel outpatient treatment is necessary. Patient denies suicidal and homicidal ideation, and appears able to effectively engage in the safety planning process verbalizing awareness of how to access supportive services on the unit if needed. Patient was seen for the first time by this provider yesterday and is aware he will likely discharge back to [place] early next week. Medication options were again discussed with patient who continues to deny need for medication. Will continue to observe patient on unit for safety and discharge readiness. MANAGEMENT PLAN: Encourage patient to consider taking psychotropic medication to address symptoms of anxiety and depression Maintain safety precautions Patient to attend groups and participate in unit programming to develop coping strategies Engage patient in discharge planning process and arrange follow up meeting with [facility] to evaluate safe discharge planning when appropriate, patient agrees to participate in outpatient behavioral health and IOP Patient to follow up with [facility] upon discharge Vital Signs Vital Sign - Last 24 Hours 07/11/16 07/11/16 07/12/16 18:00 18:00 06:00 Temp 96.4 97.9 96.6 Pulse 68 61 95 Resp 18 18 16 B/P 124/78 129/87 146/74 O2 Delivery Room Air Room Air Laboratory Data 24H Labs Laboratory Tests 2 07/12/16 06:26: Free Thyroxine Index 3.2, Thyroid Stimulating Hormone (TSH) 2.340, Thyroxine (T4 ) 9.5, Triiodothyronine (T3) Uptake 34 Current Medications Current Medications Acetaminophen (Tylenol) 650 mg Q6HP PRN PO HEADACHE or DISCOMFORT; Start at 07:00; Stop 08/09/16 at 06:59 Charcoal (Actidose-Aqua) 75 gm STK-MED ONCE As Ordered ; Start 07/10/16 at 02:26 ; Stop 07/10/16 at 02:27; Status DC Home Med (Med Rec Complete!) ASDIRECTED XX ; Start 07/10/16 at 07:15; Stop at 07:16; Status DC Lorazepam (Ativan) 1 mg Q4HP PRN PO ANXIETY/AGITATION; Start 07/10/16 at 07:00; Stop 07/17/16 at 06:59 Magnesium Hydroxide (Milk Of Magnesia) 30 ml DAILYPRN PRN PO CONSTIPATION; Start 07/10/16 at 07:00; Stop 08/09/16 at 06:59 Trazodone HCl (Desyrel) 50 mg QHSP PRN PO INSOMNIA; Start 07/10/16 at 07:00; Stop 08/09/16 at 06:59 Allergies Coded Allergies: No Known Allergies (Unverified , 07/10/16) Carolina Haro Jul 12, 2016 17:05
[2016-07-12 18:00] VITALS: BP 121/74
[2016-07-13 06:30] VITALS: BP 126/57
--- NOTE | 2016-07-13 16:00 | IPNPDOC ---
[facility] Progress Note Progress Note DATE: 07/13/16 HISTORY: Patient was seen today to assess treatment progress on inpatient unit. Patient is observed to be isolating to room and sleeping in bed. Patient continues to adjust to unit, has been attending some groups, and has been engaging selectively with peers. Patient informs radio news writer he feels "good," denies symptoms of anxiety and depression, denies suicidal and homicidal ideation, and denies urge to engage in self-injurious behavior. Patient denies challenges to energy and concentration levels, and indicates he has been sleeping well, denies nightmares. Patient continues to inform radio news writer "I have no problems, it was a misunderstanding," indicates he does not see seriousness of his recent suicide attempt, denies gravity of his impulsivity and attempt to end his life. Patient also is unable to express feelings related to impending divorce. Patient reiterates today he believes he will return to [place] with desire to be released from the and plans to return to [place]. Patient continues to deny need for medication. VITAL SIGNS: See below. NEW TEST RESULTS: No new results. EKG on 07/10/16 SR. Labs on admission indicate elevated WBCs, elevated BUN, elevated TSH. Leukocytosis, patient is asymptomatic , PA is monitoring. Acetaminophen 53.4 on Follow-up labs on 07/12/15 TSH normal, hematology within normal limits. CURRENT MEDICATIONS: See below. 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 Behavior: Patient displays no psychomotor agitation Attitude: Pleasant and cooperative with interview. Speech: Normal quantity, normal rate, normal volume Thought Content: Denies suicidal/homicidal ideation. Denies auditory/visual hallucination. Does not appear to be responding to internal stimuli. Does not appear internally preoccupied. Thought Process: Logical, linear, goal-oriented. Mood: "I'm fine, I have no problems." Affect: Constricted Cognition: Grossly intact. Orientation: Awake, alert, oriented times three. Insight and Judgement: Poor DIAGNOSES: Adjustment disorder with mixed anxiety and depressed mood, rule out MDD ASSESSMENT: Patient continues to feel his recent suicide attempt was a "misunderstanding." Patient remains superficially bright and continues to minimize the events which led to his current hospitalization. Patient continues to feel he does not need outpatient treatment or medication, however, indicates he is willing to participate in behavioral health at [place] upon discharge. Patient continues to deny suicidal and homicidal ideation, and appears able to effectively engage in the safety planning process verbalizing awareness of how to access supportive services on the unit if needed. Patient remains aware that he will likely discharge back to [place] early next week, tentative discharge day and time is Saturday at 11:00. Patient has been educated on psychotropic medication options and continues to decline. Patient was encouraged to participate in unit programming to improve coping mechanisms. Will continue to observe patient on inpatient unit to ensure safety and preparedness for discharge. MANAGEMENT PLAN: Encourage patient to consider taking psychotropic medication to address symptoms of anxiety and depression Maintain safety precautions Patient to attend groups and participate in unit programming to develop coping strategies Engage patient in discharge planning process and arrange follow up meeting with command to evaluate safe discharge planning when appropriate, patient agrees to participate in outpatient behavioral health and IOP Patient to follow up with [place] [facility] upon discharge Vital Signs Vital Sign - Last 24 Hours 07/12/16 07/13/16 18:00 06:30 Temp 97.2 97.6 Pulse 81 69 Resp 16 18 B/P 121/74 126/57 O2 Delivery Room Air Current Medications Current Medications Acetaminophen (Tylenol) 650 mg Q6HP PRN PO HEADACHE or DISCOMFORT; Start at 07:00; Stop 08/09/16 at 06:59 Charcoal (Actidose-Aqua) 75 gm STK-MED ONCE As Ordered ; Start 07/10/16 at 02:26 ; Stop 07/10/16 at 02:27; Status DC Home Med (Med Rec Complete!) ASDIRECTED XX ; Start 07/10/16 at 07:15; Stop at 07:16; Status DC Lorazepam (Ativan) 1 mg Q4HP PRN PO ANXIETY/AGITATION; Start 07/10/16 at 07:00; Stop 07/17/16 at 06:59 Magnesium Hydroxide (Milk Of Magnesia) 30 ml DAILYPRN PRN PO CONSTIPATION; Start 07/10/16 at 07:00; Stop 08/09/16 at 06:59 Trazodone HCl (Desyrel) 50 mg QHSP PRN PO INSOMNIA; Start 07/10/16 at 07:00; Stop 08/09/16 at 06:59 Allergies Coded Allergies: No Known Allergies (Unverified , 07/10/16) Carolina Haro Jul 13, 2016 16:00
[2016-07-13 18:28] VITALS: BP 123/70
[2016-07-14 06:55] VITALS: BP 136/65
[2016-07-14 18:00] VITALS: BP 113/61
--- NOTE | 2016-07-15 02:00 | IPN ---
DATE: 07/14/2016 SUBJECTIVE: This is the fifth day of inpatient admission for Shashank Zelaya. He is seen and treatment reviewed. He reports that he has been doing better and no more experiencing intent suicidal ideation. He currently is not on any scheduled psychotropic medication; however, he receives as needed dose of trazodone for insomnia. He indicates that he slept well with the dose of trazodone 50 mg the night prior. OBJECTIVE: Patient is noted to be cooperative. He is adequately groomed and appropriately dressed. He denies any psychotic features. His mood is presently not significantly depressed. Affect is appropriate. He denies suicidal or homicidal thoughts, plan, or intent. Insight is fair, and judgment is not impaired. VITAL SIGNS: Blood pressure 136/65, pulse 70, respirations 18, and temperature 96.2. ASSESSMENT: He has shown overall improvement and currently does not appear to pose risk of danger to self or to others. PLAN: He will be reassessed in the next 24 hours and if stable, will be scheduled for discharged. AALIYAH
[2016-07-15 06:35] VITALS: BP 108/65
[2016-07-15 18:47] VITALS: BP 102/72
[2016-07-16 06:28] VITALS: BP 128/62
[2016-07-16 18:38] VITALS: BP 124/56
--- NOTE | 2016-07-16 19:24 | IPNPDOC ---
[facility] Progress Note Progress Note DATE: 07/16/16 HISTORY: HISTORY: Patient was seen today to assess treatment progress on inpatient unit. Patient is observed to be engaging with peers and sleeping in bed. Patient continues to adjust to unit, has been attending groups and activities. Patient states he feels "a lot better," denies symptoms of anxiety and depression, denies suicidal and homicidal ideation and denies urge to engage in self-injurious behavior. Patient denies challenges to energy and concentration levels, and indicates he has been sleeping well(9-10 hours). Patient states "I had a lot of stress at work/home. I overdosed on pills as I didn't want to go back to work. ". Pt. states "I am ready to go home, I am coping better, I have a plan, ". Patient reiterates today he believes he will return to [place] with desire to be released from the and plans to return to [place]. Patient continues to deny need for medication. Pt. encouraged to seek outpatient therapy upon discharge. VITAL SIGNS: See below. NEW TEST RESULTS: No new results. EKG on 07/10/16 SR. Labs on admission indicate elevated WBCs, elevated BUN, elevated TSH. Leukocytosis, patient is asymptomatic , PA is monitoring. Acetaminophen 53.4 on Follow-up labs on 07/12/15 TSH normal, hematology within normal limits. CURRENT MEDICATIONS: See below. 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 Speech: Normal qualtity, rate and volume.Pt. appears to be coherent and spontaneous. Thought Processes: Logical, goal directed. Thought Content: Patient is rational, logical with no paranoia present. Abstract reasoning: Adequate. Computation: Adequate. Associations: Intact Abnormal or psychotic thoughts: Denies auditory/visual hallucination. Does not appear to be responding to internal stimuli. Does not appear internally preoccupied. Denies suicidal/homicidal ideation. Patient denies obsessions or delusions. Judgment: Fair to good. Patient states he has a plan to make better choices in the future. Patient remains in denial about the seriousness of his actions. Insight: Fair Oriented to: Time, place, person and surroundings Recent and remote memory: Patient has no issues with his immediate, short-term or long-term memory. Attention span and concentration: Is good, patient asked appropriate questions. Language: Normal. Fund of knowledge: Is adequate. Mood: Very good per patient. Patient is happy to be going home. Affect: Appropriate, flat. DIAGNOSES: Adjustment disorder with mixed anxiety and depressed mood, rule out MDD. ASSESSMENT: Patient continues to feel his recent suicide attempt was a "misunderstanding." Patient remains superficially bright and continues to minimize the events which led to his current hospitalization. Patient continues to feel he does not need outpatient treatment or medication, however, indicates he is willing to participate in behavioral health at [place] upon discharge. Pt. strongly encouraged to sign up for therapy services. Patient continues to deny suicidal and homicidal ideation, and appears able to effectively engage in the safety planning process verbalizing awareness of how to access supportive services on the unit if needed. Patient remains aware that he will likely discharge back to [place] early next week, tentative discharge day and time is Saturday at 11:00. Patient has been educated on psychotropic medication options and continues to decline. Patient was encouraged to participate in unit programming to improve coping mechanisms. Will continue to observe patient on inpatient unit to ensure safety and preparedness for discharge. MANAGEMENT PLAN: Encourage patient to consider taking psychotropic medication to address symptoms of anxiety and depression Maintain safety precautions Patient to attend groups and participate in unit programming to develop coping strategies Engage patient in discharge planning process and arrange follow up meeting with command to evaluate safe discharge planning when appropriate, patient agrees to participate in outpatient behavioral health and IOP Patient to follow up with [place] upon discharge Vital Signs Vital Sign - Last 24 Hours 07/16/16 07/16/16 06:28 18:38 Temp 96.7 98.3 Pulse 71 66 Resp 16 16 B/P 128/62 124/56 Current Medications Current Medications Acetaminophen (Tylenol) 650 mg Q6HP PRN PO HEADACHE or DISCOMFORT; Start at 07:00; Stop 08/09/16 at 06:59 Charcoal (Actidose-Aqua) 75 gm STK-MED ONCE As Ordered ; Start 07/10/16 at 02:26 ; Stop 07/10/16 at 02:27; Status DC Home Med (Med Rec Complete!) ASDIRECTED XX ; Start 07/10/16 at 07:15; Stop at 07:16; Status DC Lorazepam (Ativan) 1 mg Q4HP PRN PO ANXIETY/AGITATION; Start 07/10/16 at 07:00; Stop 07/17/16 at 06:59 Magnesium Hydroxide (Milk Of Magnesia) 30 ml DAILYPRN PRN PO CONSTIPATION; Start 07/10/16 at 07:00; Stop 08/09/16 at 06:59 Trazodone HCl (Desyrel) 50 mg QHSP PRN PO INSOMNIA; Start 07/10/16 at 07:00; Stop 08/09/16 at 06:59 Allergies Coded Allergies: No Known Allergies (Unverified , 07/10/16) JADYN NEWBY NP Jul 16, 2016 19:23 JACKELYN CADE MD Jul 17, 2016 14:17
[2016-07-17 06:05] VITALS: BP 141/62
--- NOTE | 2016-07-17 20:26 | DS.PDOC ---
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 Patient indicates his recently informed him that the relationship is over, notes he became suicidal and impulsively and intentionally overdosed on 16 tabs of Mucinex and 12 500 mg Tylenol tablets, notes he informed his who called the MPs who escorted patient to the emergency room. Patient indicates he has been one year as a 1-1/2-year- old child, has been at [place] with his for 4 months where they moved together from [facility]. Patient indicates his wants to return to [place] due to weather and he and his have been experiencing significant relationship tension. Patient notes prior to overdose he had been experiencing symptoms of anxiety, depression, hopelessness, and guilt. Patient reports current anxiety level of 2/10, depression 3/10, denies suicidal and homicidal ideation, denies audiovisual hallucinations, and denies urge to engage in self- injurious behavior. Patient states at time of overdose he intended to omit suicide, denies history of other suicide attempts. Suicidal ideation when he realized he was going to have to return to [place] from being on leave in [place]. 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 Patient denies symptoms of anxiety in social settings denies panic symptoms, denies history of compulsive behavior, denies agitation, aggression or history of unsanctioned violence, and denies access to weapons. Patient denies symptoms of reexperiencing, avoidance, hyperarousal is dissociative symptoms and denies history of mood lability, hypomania or maxim symptoms. Patient indicates he sleeps approximately 8-9 hours a night and denies nightmares, denies challenges to concentration and energy level and indicates his appetite is normal. PAST PSYCHIATRIC HISTORY: Patient denies MEDICAL HISTORY: Patient reports intermittent back pain, denies pain at present. Patient denies history of seizure or head injury, denies cardiac related challenges. LABORATORY DATA: EKG on 07/10/16 SR. Labs on admission indicate elevated WBCs, elevated BUN, elevated TSH. Labs redone on 07/12/16 within normal limits. Acetaminophen 53.4 on 07/10/16. FAMILY PSYCHIATRIC HISTORY: Patient denies SOCIAL HISTORY: Patient indicates he was born and raised in [place] by his mother, is estranged by his father, has lived in [place] for the past 8 years, denies history of abuse, trauma, or witnessing domestic violence in the home while growing up. Patient indicates in the [place] area he has a limited support system but notes his biological family is supportive. She denies history of legal problems. 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 SUBSTANCE ABUSE HISTORY: Patient denies LEGAL HISTORY: Patient denies TREATMENT PROGRESS ON UNIT: Patient has adjusted well to unit, has been visible , easily engaged, sociable with peers, and participated in unit programming. Patient remains superficially bright and continues to minimize events which led to his current hospitalization. Patient has denied need for psychotropic medication during his stay citing lack of need, however, he indicates he is willing to participate in follow-up outpatient psychotherapy at [facility]. Patient also states he and his would like to participate in couples counseling at [place]. Patient states today that he and his are going to attempt to work on the relationship and divorce is no longer imminent. Patient's has indicated that she has no concerns about patient's safety and she confirms the discharge plan is for patient to return home on [facility] base at this time. Patient continues to indicate that he would like to be released from the [employer] so that he may return to his previous life in [place], [place]. Patient denies suicidal and homicidal ideation and is able to effectively engage in the safety planning process, verbalizes awareness of how to access supportive services at [place] or in the community if needed/ desired. 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 Patient presents with good hygiene, dressed in hospital clothing, makes good eye contact and is pleasant and cooperative. Behavior: Patient displays no psychomotor agitation Attitude: Pleasant and cooperative with interview. Speech: Spontaneous, normal quantity, normal rate, normal volume, well articulated. Thought Content: Denies suicidal/homicidal ideation. Denies auditory/visual hallucination. Does not appear to be responding to internal stimuli. Does not appear internally preoccupied. Thought Process: Logical, linear, goal-oriented. Mood: "Good, I'm looking forward to discharge." Affect: Euthymic, full range, congruent to stated mood. Cognition: Grossly intact. Orientation: Awake, alert, oriented times three. Insight: Limited. Patient states he has a plan to make better choices in the future, however, remains in denial about the seriousness of his actions. Judgement: Fair CONDITION ON DISCHARGE: Stable, no suicidal or homicidal ideation DIAGNOSES ON DISCHARGE: Adjustment disorder with mixed anxiety and depressed mood, rule out MDD. MEDICATIONS ON DISCHARGE: See below. FOLLOWUP PLAN: Patient to discharge to home with on [facility]. Patient to report to [facility] health for safety check. Patient to participate in outpatient psychotherapy and recommendation is made for patient to be evaluated for participation in the IOP program. TIME SPENT: 25 minutes Vital Signs Vital Sign - Last 24 Hours 07/17/16 06:05 Temp 97.7 Pulse 70 Resp 18 B/P 141/62 Medications No Active Prescriptions or Reported Meds Allergies Coded Allergies: No Known Allergies (Unverified , 07/10/16) Carolina Haro Jul 17, 2016 20:26
== END 2016-07-17 11:40 | disposition home or self-care (01) | DRG 882 ==
LOC: M ED 02:06 → M PSY 08:43
PROVIDERS: ADMIT Psychiatry & Neurology Psychiatry; ATTEND Psychiatry & Neurology Psychiatry
DX: F43.23 Adjustment disorder with mixed anxiety and depressed mood (principal)